=== PATIENT | female | born 1940 | race Caucasian/White ===

== ENCOUNTER 2017-02-11 20:16 | Emergency (ER) | payer MEDICARE, BC ==
[~2017-02-11 20:16] MED LIST: ISOVUE-370 76%-LOCM 1 ML ONE
[2017-02-11 20:59] LABS: #Lymphocytes 1.1 thou/uL (1.20-3.40); #Monocytes 0.8 thou/uL (0.11-0.59); #Neutrophils 13.9 thou/uL (1.40-6.50); %Basophils 0.2 % (0.0-1.0); %Eosinophils 0.1 % (0.0-10.0); %Lymphocytes 6.6 % (21.0-51.0); Hematocrit 48.9 % (36.0-47.0); Mean Platelet Volume 6.2 fL (7.4-10.4); Red Blood Cell (RBC) Count 5.02 mill/uL (4.20-5.40); White Blood Cell (WBC) Count 15.8 thou/uL (4.8-10.8)
[2017-02-11 21:17] LABS: Lactic Acid - Sepsis 1.6 mmol/L (0.5-2.2)
[2017-02-11 21:21] LABS: ALT (SGPT) 20 U/L (8-55); AST (SGOT) 20 U/L (5-34); Alkaline Phosphatase 116 U/L (40-150); Anion Gap 15 mmol/L (10-20); BUN (Urea Nitrogen) 18 mg/dL (9.8-20.1); Bilirubin, Total 1.1 mg/dL (0.2-1.2); CK (CPK) 55 U/L (29-168); Calc. Creatinine Clearance 0 mL/min (70-130); Calcium 10.1 mg/dL (7.8-10.44); Carbon Dioxide 24 mmol/L (23-31); Chloride 100 mmol/L (98-107); Estimated GFR-MDRD 63; Globulin 3.6 g/dL (2.4-3.5); Lipase 10 U/L (8-78); Protein, Total 7.8 g/dL (6.0-8.3)
[2017-02-11 21:25] LABS: Troponin I Less than 0.010 ng/mL (< 0.028)
--- NOTE | 2017-02-11 23:19 | CT ---
CONTRAST ENHANCED CTA CHEST: 02/11/17 HISTORY: Dyspnea. Contrast enhanced CTA of the chest is performed. 2D and 3D reconstructed images performed on an [employer] 3D workstation. Calcification of the aortic arch is seen. Bilateral pulmonary parenchymal interstitial fibrotic galvan es seen. Emphysematous changes also present. these are likely old. No evidence of acute intrathoracic abnormality seen. No evidence of filling defect seen in the pulmonary arteries to suggest pulmonary emboli. Coronary artery calcifications are seen. Some left hilar lymph node calcifications also seen. There is thickening of the mucus in the distal esophagus. This may represent esophageal pathology carmen rufina a hiatal hernia. Cyst or cystic lesion is present in the left hepatic lobe. Calcifications maggie tible with granuloma seen in the liver and in the spleen. IMPRESSION: 1. No evidence of pulmonary emboli seen. 2. Emphysematous and fibrotic changes seen in the lung parenchyma. POS: [facility]
[2017-02-11] MEDS ORDERED: predniSONE 20 MG TAB ONE (23:21)
== END 2017-02-12 00:22 | disposition home or self-care (01) ==
LOC: ERS 20:16
DX: J44.1 Chronic obstructive pulmonary disease with (acute) exacerbation (principal); F41.9 Anxiety disorder, unspecified; Z87.891 Personal history of nicotine dependence; Z79.899 Other long term (current) drug therapy
CPT/HCPCS: 36415; 71275; 80053; 82550; 82553; 83605; 83690; 84484; 85025; 87040; 93005; 94640; 94760; J7506; J7620

== ENCOUNTER 2018-02-24 00:29 | Emergency (ER) | payer MEDICARE, BC ==
[2018-02-24] MEDS ORDERED: Ondansetron PF 4 MG/2 ML Vial ONE (01:02)
[2018-02-24 01:15] LABS: #Eosinphils 0.1 thou/uL (0.0-0.7); #Lymphocytes 0.8 thou/uL (1.20-3.40); #Monocytes 0.9 thou/uL (0.11-0.59); #Neutrophils 8.3 thou/uL (1.40-6.50); %Basophils 0.1 % (0.0-1.0); %Eosinophils 1.3 % (0.0-10.0); %Lymphocytes 7.8 % (21.0-51.0); %Monocytes 8.7 % (0.0-10.0); %Neutrophils 82.1 % (42.0-75.0); Hemoglobin 14.8 g/dL (12.0-16.0); Mean Corpuscular HGB CONC 33.4 g/dL (32.0-36.0); Mean Corpuscular Hemoglobin 31.5 pg (27.0-31.0); Mean Corpuscular Volume 94.6 fL (78.0-98.0); Mean Platelet Volume 7.4 fL (7.4-10.4); Platelet Count 190 thou/uL (130-400); RBC Distribution Width 13.6 % (11.5-14.5); White Blood Cell (WBC) Count 10.1 thou/uL (4.8-10.8)
[2018-02-24 01:35] LABS: ALT (SGPT) 17 U/L (8-55); AST (SGOT) 16 U/L (5-34); Alkaline Phosphatase 124 U/L (40-150); Anion Gap 16 mmol/L (10-20); BUN (Urea Nitrogen) 27 mg/dL (9.8-20.1); Bilirubin, Total 0.6 mg/dL (0.2-1.2); Calc. Creatinine Clearance 0 mL/min (70-130); Calcium 10.2 mg/dL (7.8-10.44); Carbon Dioxide 24 mmol/L (23-31); Chloride 104 mmol/L (98-107); Estimated GFR-MDRD 60; Globulin 3.3 g/dL (2.4-3.5); Glucose 120 mg/dL (83-110); Lipase 33 U/L (8-78); Protein, Total 7.3 g/dL (6.0-8.3); Sodium 140 mmol/L (136-145)
[2018-02-24] MEDS ORDERED: Pantoprazole 40 MG VIAL ONE (03:58)
[2018-02-24 04:04] LABS: Bilirubin Negative (Negative); Blood, Urine Negative (Negative); Clarity CLEAR (Clear); Glucose, Urine (Dipstick) Negative (Negative); Leukocyte Negative (Negative); Nitrite Negative (Negative); Protein, Urine (Dipstick) Negative (Neg-Trace)
[2018-02-24 04:24] LABS: Specific Gravity, Urine Greater than 1.060 (1.002-1.036)
--- NOTE | 2018-02-24 08:17 | RAD ---
PORTABLE CHEST 1 VIEW: Date; 02/24/18 Time: 0059 hours HISTORY: Upper abdominal pain, swelling, diarrhea. FINDINGS: Comparison made with exam of 07/16/10. The heart size is normal. The aorta is tortuous. The lungs are expanded without focal areas of consol idation, pneumothorax, or pleural effusions. IMPRESSION: No acute process. POS: [facility]
--- NOTE | 2018-02-24 08:34 | CT ---
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 TECHNIQUE: Axial computed tomography images of the abdomen and pelvis with intravenous contrast. Coronal reforma tted images were created and reviewed. COMPARISON: No relevant prior studies available. FINDINGS: Lower thorax: No acute infiltrate in either lung base. Inferior left hemithorax calcified pleural irma que. Small hiatal hernia. ABDOMEN: Liver: Scattered calcified granulomas within the liver. 15 mm cyst in the left lobe of the liver. Gallbladder and bile ducts: Normal. No calcified stones. No ductal dilation. Pancreas: Normal. No ductal dilation. Spleen: Scattered calcified granulomas within the spleen. Adrenals: Normal. No mass. Kidneys and ureters: Normal. No hydronephrosis. Stomach and bowel: Normal. No obstruction. No mucosal thickening. Appendix: No evidence of appendicitis. PELVIS: Bladder: Unremarkable as visualized. Reproductive: Atrophic uterus and ovaries. ABDOMEN and PELVIS: Intraperitoneal space: Normal. No free air. No significant fluid collection. Bones/joints: No acute fracture. No dislocation. Soft tissues: Upper abdominal fat-containing ventral hernia Vasculature: Normal. No abdominal aortic aneurysm. Lymph nodes: Normal. No enlarged lymph nodes. IMPRESSION: 1. No acute intra-abdominal or pelvic process. 2. Small hiatal hernia. Thank you for allowing us to participate in the care of your patient. Dictated and Authenticated by: William Engel MD 02/24/2018 3:29 AM Central Time ([place] & [place]) FINAL REPORT CT ABDOMEN AND PELVIS WITH IV CONTRAST: Date: 02/24/18 FINDINGS/IMPRESSION: I agree with the preliminary report given by Mickie. POS: [facility]
--- NOTE | 2018-02-27 15:35 | EKG ---
Test Reason : Blood Pressure : / mmHG Vent. Rate : 083 BPM Atrial Rate : 083 BPM P-R Int : 122 ms QRS Dur : 072 ms QT Int : 376 ms P-R-T Axes : 080 059 060 degrees QTc Int : 441 ms Normal sinus rhythm Biatrial enlargement Nonspecific ST and T wave abnormality Abnormal ECG Confirmed by LEISA BECKER ([id number]), news videotape editor [employer] ([id number]) on 02/27/2018 3:34:54 PM Referred By: Confirmed By:LEISA BECKER
== END 2018-02-24 05:33 | disposition home or self-care (01) ==
LOC: ERS 00:29
DX: E86.0 Dehydration (principal); R10.9 Unspecified abdominal pain; J44.9 Chronic obstructive pulmonary disease, unspecified; F32.9 Major depressive disorder, single episode, unspecified; Z87.891 Personal history of nicotine dependence; Z79.899 Other long term (current) drug therapy; Z79.51 Long term (current) use of inhaled steroids
CPT/HCPCS: 36415; 71045; 74177; 80053; 81003; 83605; 83690; 84484; 85025; 93005; 94760; 96361; 96374; 96375; C9113; J2405

== ENCOUNTER 2018-02-26 12:27 | Day surgery (SDC) | payer MEDICARE, BC ==
[2018-02-25 15:49] VITALS: BMI 20.5
[2018-02-26] MEDS ORDERED: Albuterol Sulfate 2.5 mg/3 ml Neb NEB SCH (13:45)
[2018-02-26] MEDS ORDERED: Albuterol Sulfate 2.5 mg/3 ml Neb ONE (13:47)
--- NOTE | 2018-02-26 21:21 | OP ---
DATE OF PROCEDURE: 02/26/2018 PROCEDURES PERFORMED: 1. Esophagogastroduodenoscopy with biopsy. 2. Colonoscopy with polypectomy. INDICATIONS FOR PROCEDURE: Midepigastric abdominal pain. DESCRIPTION OF PROCEDURE: After the risks and benefits of the procedures were explained to the patient including risks of bleeding, infection, perforation, reactions to anesthesia, aspiration and/or pain, informed consent was obtained. The patient was then taken to the endoscopy suite, where deep sedation was administered via propofol and anesthesia support. Once adequate sedation was achieved, the standard gastroscope was introduced into the mouth with intubation of the esophagus, stomach, and proximal small intestine with the findings listed below. The patient tolerated this portion of the procedure well with no immediate perioperative complications. Upon completion of this portion of the procedures, all equipment was removed and the bed was rotated approximately 180 degrees. Once the patient was in position, a digital rectal examination was performed followed by introduction of the standard colonoscope into the rectum and advanced to the cecum with some difficulty due to tortuosity of the colon that required manual abdominal pressure to facilitate passage of the scope. The quality of the prep was fair with incomplete evaluation of the colonic mucosa due to a moderate amount of retained semi-solid and liquid stool. The patient tolerated the procedure well with no immediate perioperative complications. After the conclusion of the colonoscopy, all equipment was removed and the patient was taken to Day Stay in satisfactory condition. EGD FINDINGS: Esophagus: Normal-appearing mucosa was seen in the proximal and mid esophagus; however, salmon-colored mucosa extending up from the GE junction was seen in a circumferential manner at a length of approximately 1 cm. 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 There was no evidence of erosions, ulcerations, mass, lesions, or active/recent bleeding. The diaphragmatic pinch was well seen at 38 cm while the GE junction was well seen at 36 cm denoting a 2 cm hiatal hernia. Stomach: Normal-appearing mucosa was seen in the gastric cardia, fundus, body, greater curvature, antrum, and incisura. There was no evidence of erosions, ulcerations, mass, lesions, or active/recent bleeding. Duodenum: A mottled appearance was seen in the duodenal bulb, characterized as multiple erosions with effacement of the superficial mucosa within the duodenal bulb. Multiple biopsies were taken from this region for evaluation. Otherwise, there was no associated ulcerations, mass, or lesions. Normal-appearing mucosa was seen in the second portion of the duodenum as well. IMPRESSION: 1. 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 2. 2 cm hiatal hernia. 3. Erosive changes seen in the duodenal bulb concerning for H pylori versus NSAID duodenitis. 4. No etiology for the patient's abdominal pain was seen during this examination. COLONOSCOPY FINDINGS: Digital rectal exam: Small external hemorrhoids and perianal skin tags were seen on external examination. Colon findings: A moderate amount of semi-solid and liquid stool was seen throughout the entire colon, limiting visualization of the colonic mucosa despite aggressive irrigation and suctioning with sterile water. Of the mucosa seen, normal-appearing mucosa was seen at the ileocecal valve as well as the appendiceal orifice. Normal-appearing mucosa was seen in the cecum, ascending, and transverse colons. Three polyps measuring 3 mm in size were seen in the descending colon and completely removed with biopsy forceps. They were retrieved and placed in a specimen jar for evaluation. Normal-appearing mucosa was then seen in the sigmoid colon. An additional 3 to 4 mm polyp was seen in the rectum and completely removed with biopsy forceps. It was retrieved and placed in a specimen jar for evaluation. Otherwise, small internal hemorrhoids were seen on rectal retroflexion. IMPRESSION: 1. Incomplete visualization of the colonic mucosa secondary to retained semi-solid/liquid stool that is adequate for the purposes of evaluation of abdominal pain, but inadequate for the purpose of screening for lesions less than 5 mm in size. 2. Three 3-mm polyps seen in the descending colon, status post biopsy forceps. 3. A 3 to 4 mm polyp seen in the rectum and completely removed with biopsy forceps. 4. Small internal and external hemorrhoids. 5. Perianal skin tags. 6. No etiology for the patient's abdominal pain was seen during this examination. RECOMMENDATIONS: 1. We would follow up on the biopsy results with repeat upper endoscopy and colonoscopy based on pathology results. 2. We would recommend followup with PCP for probable ventral hernia pain. 3. Followup in the GI clinic as needed. 4. Recommend pain control with acetaminophen for now until seen by primary care physician. 5. We would have the patient follow up in the GI clinic in 3 weeks for evaluation of any additional GI abnormalities. Job ID: [id number]
== END 2018-02-26 16:42 | disposition home or self-care (01) ==
LOC: SDC 12:27
PROVIDERS: ATTEND Internal Medicine
PROC: 0DB98ZX Excision of Duodenum, Via Natural or Artificial Opening Endoscopic, Diagnostic (ICD-10-PCS; principal; 2018-02-26)
PROC: 0DB58ZX Excision of Esophagus, Via Natural or Artificial Opening Endoscopic, Diagnostic (ICD-10-PCS; 2018-02-26)
PROC: 0DBM8ZX Excision of Descending Colon, Via Natural or Artificial Opening Endoscopic, Diagnostic (ICD-10-PCS; 2018-02-26)
PROC: 0DBP8ZX Excision of Rectum, Via Natural or Artificial Opening Endoscopic, Diagnostic (ICD-10-PCS; 2018-02-26)
DX: D12.4 Benign neoplasm of descending colon (principal); D12.8 Benign neoplasm of rectum; K63.89 Other specified diseases of intestine; K20.9 Esophagitis, unspecified; K26.9 Duodenal ulcer, unspecified as acute or chronic, without hemorrhage or perforation; K44.9 Diaphragmatic hernia without obstruction or gangrene; K64.4 Residual hemorrhoidal skin tags; K64.8 Other hemorrhoids; Z79.899 Other long term (current) drug therapy; Z88.0 Allergy status to penicillin
CPT/HCPCS: J7611

== ENCOUNTER 2018-02-28 10:30 | Inpatient (IN) | payer MEDICARE, BC ==
[2018-02-28] MEDS ORDERED: Dexamethasone 4 mg/ml Vial ONE (10:47)
[2018-02-28] MEDS ORDERED: Magnesium 2 GM/50 ML BAG (IN WATER) ONE (10:47)
[2018-02-28 10:59] LABS: #Lymphocytes 0.7 thou/uL (1.20-3.40); #Monocytes 0.4 thou/uL (0.11-0.59); #Neutrophils 6.8 thou/uL (1.40-6.50); %Basophils 0.1 % (0.0-1.0); %Eosinophils 0.6 % (0.0-10.0); %Monocytes 5.4 % (0.0-10.0); Hemoglobin 13.2 g/dL (12.0-16.0); Mean Corpuscular HGB CONC 32.8 g/dL (32.0-36.0); Mean Corpuscular Hemoglobin 31.5 pg (27.0-31.0); Mean Platelet Volume 6.7 fL (7.4-10.4); Platelet Count 175 thou/uL (130-400); RBC Distribution Width 13.2 % (11.5-14.5); Red Blood Cell (RBC) Count 4.18 mill/uL (4.20-5.40); White Blood Cell (WBC) Count 7.9 thou/uL (4.8-10.8)
[2018-02-28 11:09] LABS: Actual Bicarbonate (HCO3a) 20.7 mEq/L (22-28); Analyzer IN Cardio ER; CO2 Tension 29.7 mmHg (35.0-45.0); Carboxyhemoglobin (COHb) 0.6 gm% (0.0-3.0); Hemoglobin (Hb) 13.3 g/dL (12.0-16.0); Potassium - ABG Lab 3.15 mmol/L (3.70-5.30); pH, Arterial 7.46 (7.35-7.45)
[2018-02-28] MEDS ORDERED: Lorazepam 2 MG/ML VIAL ONE (11:11)
[2018-02-28 11:17] LABS: Puncture Site LR
[2018-02-28 11:18] LABS: ALV-art Gradient 159.375 (0-20)
[2018-02-28 11:23] LABS: ALT (SGPT) 15 U/L (8-55); AST (SGOT) 16 U/L (5-34); Albumin 3.4 g/dL (3.4-4.8); Alkaline Phosphatase 78 U/L (40-150); Anion Gap 17 mmol/L (10-20); BUN (Urea Nitrogen) 11 mg/dL (9.8-20.1); Bilirubin, Total 0.6 mg/dL (0.2-1.2); CK (CPK) 58 U/L (29-168); Calc. Creatinine Clearance 0 mL/min (70-130); Calcium 9.4 mg/dL (7.8-10.44); Carbon Dioxide 22 mmol/L (23-31); Chloride 104 mmol/L (98-107); Estimated GFR-MDRD 81; Globulin 3.3 g/dL (2.4-3.5); Glucose 121 mg/dL (83-110); Lipase 18 U/L (8-78); Potassium 3.7 mmol/L (3.5-5.1); Protein, Total 6.7 g/dL (6.0-8.3); Sodium 139 mmol/L (136-145)
[2018-02-28 11:46] LABS: CKMB 2.2 ng/mL (0-6.6)
--- NOTE | 2018-02-28 12:24 | RAD ---
PORTABLE AP CHEST XRAY: DATE: 02/28/2018. HISTORY: Dyspnea and shortness of breath for several days. COMPARISON: 02/24/2018. FINDINGS: Lungs are hyperexpanded with emphysematous changes again seen in the upper lung zones. There are chr onic lung changes again seen bilaterally. However, there are slightly greater increased patchy inter stitial opacities within the left mid lung zone and at the left lung base which may be related to dev eloping pneumonia. Vascular calcifications are seen in the thoracic aorta. Cardiac silhouette and p ulmonary vasculature are within normal limits. There is osteopenia. IMPRESSION: 1. Pneumonitis/developing pneumonia in the left mid lung zone and at the left lung base. Followup t o resolution is recommended. 2. Chronic lung changes and evidence of chronic obstructive pulmonary disease. POS: [facility]
[2018-02-28] MEDS ORDERED: Benzonatate 100 MG CAP PO PRN (13:26)
[2018-02-28] MEDS ORDERED: Acetaminophen 325 MG TAB PO PRN (13:26)
[2018-02-28] MEDS ORDERED: Bisacodyl 5 MG TAB PO PRN ×2 (13:26)
[2018-02-28] MEDS ORDERED: Senokot S 8.6-50 MG TAB PO PRN ×2 (13:26)
[2018-02-28] MEDS ORDERED: Nitroglycerin 0.4 MG TAB (25 Tab Bottle) SL PRN (13:26)
[2018-02-28] MEDS ORDERED: hydrALAZINE 20 MG/ML VIAL SLOW IVP PRN (13:26)
[2018-02-28] MEDS ORDERED: Ondansetron PF 4 MG/2 ML Vial IVP PRN (13:26)
[2018-02-28] MEDS ORDERED: cloNIDine 0.1 MG TAB PO PRN (13:26)
[2018-02-28 14:06] LABS: Bilirubin Small (Negative); Blood, Urine Negative (Negative); Clarity CLEAR (Clear); Glucose, Urine (Dipstick) Negative (Negative); Leukocyte Negative (Negative); Nitrite Negative (Negative); Protein, Urine (Dipstick) Trace mg/dL (Neg-Trace); Specific Gravity, Urine 1.043 (1.002-1.036)
[2018-02-28 14:56] LABS: Lactic Acid 2.5 mmol/L (0.5-2.2)
[2018-02-28] MEDS ORDERED: Mometasone/Formoterol 120 PUFF INHALER INH SCH ×2 (15:00→18:30)
[2018-02-28] MEDS ORDERED: Sodium Chloride 0.9% 1,000 ML IV SCH (15:00)
[2018-02-28 15:27] VITALS: BMI 20.5
[2018-02-28] MEDS: Sodium Chloride 0.9% 1,000 ML IV SCH ×2 (15:45→23:59)
--- NOTE | 2018-02-28 15:46 | HP ---
PRIMARY CARE PHYSICIAN: Juan Alberto Almazan MD. CHIEF COMPLAINT: Shortness of breath and abdominal pain. HISTORY OF PRESENTING ILLNESS: Ms. Guzman is a pleasant 78-year-old female with past medical history of COPD who presented to the emergency room with above-mentioned complaint. History is mainly obtained by the patient herself and supplemented by multiple family members present in the room. Electronic medical records have been reviewed and the case has been discussed with admitting ER physician, Dr. Serra. Ms. Guzman reports that she has had sudden onset of sharp, severe abdominal pain on 02/24/2018 and presented to the ER. She underwent a CT scan of the abdomen and pelvis and was found to have a hiatal hernia and was referred to GI for further evaluation. She underwent EGD and colonoscopy by Dr. Kirk on 02/26/2018 with biopsies taken. She was found to have a ventral hernia and a hiatal hernia and was started on dexlansoprazole. Her abdominal pain is not really relieved and it is better when she rests, but whenever she starts walking it hurts more. Because of this reason, she has been walking less and less and somehow according to the family, she has developed pneumonia because of that. They presented to the ER today when she woke up with severe difficulty breathing this morning. She has been having some postnasal drip for the last 2 or 3 days and low-grade fever since her colonoscopy. Her last bowel movement was after colonoscopy, but she is passing gas. Her abdominal pain is tolerable when she rests, but if she walks around, she has severe epigastric and lower abdominal pain. She has had some nausea but no vomiting and has poor appetite. In the emergency room, she underwent chest x-ray, which showed findings consistent with left lower lobe pneumonia. She was hypoxic with 75% oxygen saturation per EMS. She was initially treated with BiPAP in the ER and was weaned off it with improved oxygenation. She received nebulizers as well as antibiotics in the emergency room. There was also evidence of demand ischemia with troponin of 0.215 and BNP of 219. Her lactic acid is elevated to 3.1. She is now being admitted to the hospital with acute hypoxic respiratory failure due to COPD exacerbation and pneumonia. PAST MEDICAL HISTORY: COPD. PAST SURGICAL HISTORY: 1. Bladder surgery. 2. Sinus surgery. 3. Appendectomy. 4. Cholecystectomy. PSYCHIATRIC HISTORY: Depression. SOCIAL HISTORY: She lives at home with her family and is normally ambulatory and independent with her ADLs. She quit smoking about 12 years ago. No alcohol or drug abuse. FAMILY HISTORY: Significant for colon cancer in her father and her brother. Her mother had kidney cancer. One of her sisters had lung cancer and brain cancer. No heart disease runs in her family. ALLERGIES: PENICILLIN. HOME MEDICATIONS: 1. Sertraline 50 mg daily. 2. Aldactone 25 mg daily. 3. Advair Diskus b.i.d., which she has not been able to do for the last two days because of weakness. 4. Albuterol inhaler. 5. Magnesium. 6. Prilosec. 7. Zofran. REVIEW OF SYSTEMS: A 12-point review of system is done, it is negative except for those mentioned in the history and physical. CODE STATUS: Full code discussed with the patient in detail along with her family members in the room. LABORATORY DATA: Her CBC today shows WBC 7.9 with 85% neutrophils, hemoglobin 13.2, platelet count 175. Her ABG shows pH of 7.46, pCO2 29, PO2 160 on 50% oxygen with BiPAP. Serum chemistry showed bicarb 22, blood sugar 121. Lactic acid 3.1. CK-MB normal. Creatine kinase normal. Troponin 0.215 with repeat troponin 0.287. BNP of 219. Lipase normal. Urinalysis showed trace ketones. Chest x-ray by my review shows left-sided basilar opacity. A 12-lead EKG by my review shows nonspecific ST and T-wave changes and sinus tachycardia with heart rate of 107. PHYSICAL EXAMINATION: VITAL SIGNS: Upon presentation to the ER, 97% on a non-rebreather. Blood pressure 138/62, pulse of 107, respirations 32, temperature 98.7. GENERAL: She appears ill and sick looking, but in no acute distress. She is coughing, which sounds very rattly. Multiple family members are at bedside. HEENT: Mucous membranes slightly dry. No oropharyngeal exudate or erythema. Head is normocephalic, atraumatic. Pupils equal, reactive to light and accommodation. Extraocular movements intact. NECK: Supple without any lymphadenopathy, JVD, or bruit. CHEST: Shows very few wheezing bilaterally, but the breath sounds are diminished equally on both sides. Rate rhythm is regular without any murmurs, rubs, or gallops. ABDOMEN: Tender to palpation in the epigastric region and entire lower abdomen. There is no rebound, guarding, or rigidity. It is soft and nondistended. EXTREMITIES: Free of any cyanosis, clubbing, or edema. NEUROLOGICAL: Nonfocal. SKIN: Free of any rashes or bruises. Feels warm and dry to touch. PSYCHIATRIC: Normal affect. IMPRESSION AND PLAN: 1. Acute hypoxic respiratory failure. This is likely multifactorial. She has evidence of chronic obstructive pulmonary disease exacerbation and her physical examination was consistent with severe respiratory distress upon presentation, requiring BiPAP. She also has evidence of left lower lobe pneumonia. At this time, she will be admitted to telemetry unit and we will treat her for both. We will continue her on IV levofloxacin, which she has received in the ER and start her on IV steroids and nebulizers scheduled as well as p.r.n. and add Dulera b.i.d. With her elevated cardiac enzyme, a cardiac event can also not be ruled out. However, most likely the elevated enzymes are consistent with demand ischemia. We will obtain a transthoracic echocardiogram and continue to trend serial cardiac enzymes. No evidence to suggest pulmonary edema at this time. 2. Sepsis. She does have elevated lactic acid, tachycardia upon presentation as well as neutrophilia with evidence of infection. She will be started on IV antibiotics and gentle IV fluids. Blood cultures and urine cultures have been obtained in the ER and we will follow the results. She will be monitored on telemetry unit. Repeat lactic acid in 2 hours per sepsis protocol. 3. Abdominal pain. The patient's examination is consistent with severe hiatal hernia and possibly gastroesophageal reflux disease. We will treat her with proton pump inhibitor twice a day. We will request consultation with surgery in the inpatient setting because of unrelenting abdominal pain and inability to pass any stool for the last 24 hours. We will have a low threshold if her signs and symptoms are consistent with obstruction. Currently, she is passing gas. We will put her on diet as tolerated for now. Her EGD and colonoscopy was reviewed and EGD showed erosive changes in the duodenal bulb. 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 The colonoscopy has showed some polyps and hemorrhoids. 4. Elevated cardiac enzymes. This is most likely secondary to demand ischemia from severe hypoxia. Echocardiogram will be ordered and we will continue to trend serial cardiac enzymes. 5. Severe deconditioning. We will have OT, PT evaluate the patient and follow along. 6. History of depression. Restart Zoloft once home dosage is confirmed. 7. Code status: Full code discussed with the patient. 8. Add p.r.n. medication order and deep vein thrombosis and gastrointestinal prophylaxis. DISPOSITION: Ms. Guzman is currently being admitted to the hospital for acute hypoxic respiratory failure: Acute COPD exacerbation and left lower lobe pneumonia with sepsis. Estimated length of stay at this time is at least 2 to 3 midnights. Total time spent in admission of this critically ill patient, 40 minutes. Job ID: [id number]
[2018-02-28 16:34] LABS: Legionella Urinary Ag Negative (Negative); Strep pneumo Urine Ag NEGATIVE (NEGATIVE)
[2018-02-28 17:37] LABS: CKMB 2.4 ng/mL (0-6.6)
[2018-02-28] MEDS: guaiFENesin ER 600 MG TAB PO SCH (20:14)
[2018-02-28] MEDS ORDERED: Non-Formulary Item 1 EACH (Fluticasone/Salmeterol [Advair Diskus 250/50] 1 INH) IH SCH (21:00)
[2018-02-28] MEDS ORDERED: Famotidine 20 MG TAB PO SCH (21:00)
[2018-02-28] MEDS: Amitriptyline HCl 25 MG TAB PO SCH (21:30)
[2018-02-28] MEDS: Spironolactone 25 MG TAB PO SCH (21:31)
--- NOTE | 2018-03-01 03:39 | CON ---
DATE OF CONSULTATION: REASON FOR CONSULTATION: Abdominal pain and hernia. HISTORY OF PRESENT ILLNESS: Ms. Guzman is a 78-year-old woman who has been complaining of abdominal pain and nausea since . She was seen in the emergency room and no significant problems found, so she was sent home but continued to have problems, so her family brought her back. She has basically been on a liquid diet since the onset of her symptoms with periods of not eating due to testing. She has difficulty saying where her pain is, but does seem to have it more in the upper abdomen and the lower abdomen. She underwent EGD and colonoscopy without any significant abnormalities found. She was started on PPI. She states that the abdominal pain is worse when she walks, but eating does not necessarily affect it. However, she has difficulty saying with confidence that eating does not cause the pain to get worse and she has not really been eating much since it started. She also has been having worsening problems with breathing and has been diagnosed with a left lower lobe pneumonia. She was hypoxic on arrival at 75% and was briefly on BiPAP before being weaned to nasal cannula. She is on home O2 at 2 to 2.5 L/min. Her family states that she does not always wear this during the day, but always wears it at night. CT of the abdomen obtained at some point during this process showed a small hiatal hernia. She was also noted to have a ventral hernia, although this was not in the report, containing preperitoneal fat in the epigastric area. PAST MEDICAL HISTORY: She has a past medical history of COPD, oxygen dependent. She has not seen her dental prosthetist in several years. PAST SURGICAL HISTORY: Appendectomy, cholecystectomy, bladder surgery, and sinus surgery. SOCIAL HISTORY: Positive for tobacco use, which she quit over 10 years ago. No history of alcohol or drug use. FAMILY HISTORY: Colon and kidney cancer, lung and brain cancer. ALLERGIES: SHE REPORTS AN ALLERGY TO PENICILLIN. MEDICATIONS AT HOME: Takes; 1. Sertraline. 2. Aldactone. 3. Advair. 4. Albuterol. 5. Magnesium. 6. Prilosec. 7. Zofran. REVIEW OF SYSTEMS: A 12-system review is negative except per HPI. PHYSICAL EXAMINATION: VITAL SIGNS: The patient is afebrile with low to low normal blood pressure, heart rate in the 70s to 80s, and 97% to 98 % saturated on 2 L to 3 L nasal cannula. GENERAL: Reveals a frail, elderly woman, in no acute distress. She is not jaundiced or icteric. She is not flushed or toxic in appearance. HEENT: Unremarkable. NECK: Supple without lymphadenopathy. HEART: Regular in its rate and rhythm without murmurs, rubs, or gallops. LUNGS: Clear to auscultation anteriorly. ABDOMEN: Diffusely tender to palpation. She does have an easily reducible hernia defect in the epigastric area which is about 2 fingers breadth in size. She is tender to palpation in this area, but is also tender to palpation over her lower ribcage and lateral chest. EXTREMITIES: Warm and well perfused with some mild ankle edema. NEUROLOGIC: No focal deficits. PSYCHIATRIC: Alert, oriented, and anxious. LABORATORY DATA: White count is normal. Troponins have been mildly elevated, and lactate has also been mildly elevated, also trending down. BNP is slightly up at 219. CT images are reviewed. I agree with the written report. The written report does not mention the epigastric hernia, but there is clearly a fascial defect with preperitoneal fat only protruding through it. This is small and contains only fat. ASSESSMENT: Ventral hernia, possibly related to a previous laparoscopic surgery. This is a small reducible defect which does not really explain all of her symptoms. This can be repaired electively as an outpatient if the patient is cleared for surgery by Pulmonary Medicine. However, I am concerned about her ability to tolerate anesthesia and extubate postoperatively. I can order a binder for the patient for when she gets out of bed, but she should not wear this in bed due to her somewhat tenuous pulmonary status. If her pain is relieved by the binder, we will provide some evidence that some of her pain is due to the hernia. However, I cannot attribute her lower abdominal pain or her nausea to this small reducible fat only containing hernia. It is possible that she just has a viral gastroenteritis or some other self-limiting problem since the GI complaints have only been present for a few days. She can follow up with me in my clinic next week, but again, she will require clearance from Pulmonary prior to surgery. She will also likely need cardiac clearance given her elevated troponin during this admission. Job ID: [id number]
[2018-03-01] MEDS: Sodium Chloride 0.9% 1,000 ML IV SCH ×2 (05:30→21:28)
[2018-03-01 05:58] LABS: #Lymphocytes 0.3 thou/uL (1.20-3.40); #Monocytes 0.3 thou/uL (0.11-0.59); #Neutrophils 6.8 thou/uL (1.40-6.50); %Lymphocytes 4.2 % (21.0-51.0); %Monocytes 3.5 % (0.0-10.0); %Neutrophils 92.3 % (42.0-75.0); Mean Corpuscular HGB CONC 32.9 g/dL (32.0-36.0); Mean Corpuscular Hemoglobin 31.7 pg (27.0-31.0); Mean Corpuscular Volume 96.1 fL (78.0-98.0); Platelet Count 163 thou/uL (130-400); RBC Distribution Width 12.9 % (11.5-14.5); Red Blood Cell (RBC) Count 3.48 mill/uL (4.20-5.40); White Blood Cell (WBC) Count 7.3 thou/uL (4.8-10.8)
[2018-03-01 06:17] LABS: Anion Gap 11 mmol/L (10-20); BUN (Urea Nitrogen) 8 mg/dL (9.8-20.1); Calc. Creatinine Clearance 65 mL/min (70-130); Carbon Dioxide 25 mmol/L (23-31); Chloride 110 mmol/L (98-107); Estimated GFR-MDRD Greater than 90; Glucose 123 mg/dL (83-110); Potassium 4.2 mmol/L (3.5-5.1); Sodium 142 mmol/L (136-145)
[2018-03-01] MEDS: Mometasone/Formoterol 120 PUFF INHALER INH SCH ×2 (07:07→19:19)
[2018-03-01 08:51] LABS: Troponin I 0.067 ng/mL (< 0.028)
[2018-03-01] MEDS: Enoxaparin Sodium 40 MG/0.4 ML SYRINGE SC SCH (09:17)
[2018-03-01] MEDS: Magnesium Oxide 400 MG TAB PO SCH (09:18)
[2018-03-01] MEDS: Saccharomyces boulardii 250 MG CAP PO SCH (09:19)
[2018-03-01] MEDS: guaiFENesin ER 600 MG TAB PO SCH ×2 (09:19→21:29)
--- NOTE | 2018-03-01 12:45 | PDOC.PN ---
- Subjective Encounter Start Date: 03/01/18 Encounter Start Time: 09:15 Subjective: no chest pain or sob or palp -: abd dyscomfort is better -: had bm this am, no nausea, is tolerating oral diet - Objective Resuscitation Status - Order Detail: 02/28/18 14:49 Resuscitation Status Routine Resuscitation Status: FULL: Full Resuscitation Discussed with: discussed w pt MAR Reviewed: Yes Vital Signs & Weight: Vital Signs (12 hours) Temp Pulse Resp BP Pulse Ox 03/01/18 11:46 98.4 F 65 16 111/53 L 95 03/01/18 07:27 98.2 F 77 19 106/52 L 93 L 03/01/18 07:09 71 16 97 03/01/18 07:07 71 16 97 03/01/18 03:18 97.8 F 66 20 103/54 L 92 L Weight Weight 122 lb 1.6 oz I&O: 02/28/18 03/01/18 03/02/18 06:59 06:59 06:59 Intake Total 1549 Output Total 1100 Balance 449 Result Diagrams: 03/01/18 05:01 03/01/18 05:01 Phys Exam - Physical Examination HEENT: PERRLA, moist MMs Neck: no JVD, supple Respiratory: no wheezing, no rales Cardiovascular: RRR, no significant murmur Gastrointestinal: soft, non-tender, positive bowel sounds Musculoskeletal: no edema, pulses present Neurological: non-focal, moves all 4 limbs Psychiatric: normal affect, A&O x 3 Dx/Plan (1) Acute respiratory failure with hypoxia Code(s): J96.01 - ACUTE RESPIRATORY FAILURE WITH HYPOXIA Status: Resolved Comment: on home dose of 2 lts now (2) COPD exacerbation Code(s): J44.1 - CHRONIC OBSTRUCTIVE PULMONARY DISEASE W (ACUTE) EXACERBATION Status: Acute (3) Demand ischemia of myocardium Code(s): I24.8 - OTHER FORMS OF ACUTE ISCHEMIC HEART DISEASE Status: Acute (4) Abdominal pain Code(s): R10.9 - UNSPECIFIED ABDOMINAL PAIN Status: Chronic Qualifiers: Abdominal location: epigastric Qualified Code(s): R10.13 - Epigastric pain (5) PNA (pneumonia) Code(s): J18.9 - PNEUMONIA, UNSPECIFIED ORGANISM Status: Suspected Qualifiers: Pneumonia type: due to unspecified organism - Plan is on levaquin, solumedrol, nebs -: gentle iv hydration -: outpt pre-op w/u for ventral hernia repair -: echo pending, PT to mobilize as tolerated -: may dc home if cleared by specialists on oral antibiotics, steroids * . Review of Systems - Medications/Allergies Allergies/Adverse Reactions: Allergies Allergy/AdvReac Type Severity Reaction Status Date / Time Penicillins Allergy Verified 02/25/18 15:49 Medications: Current Medications Acetaminophen (Tylenol) 650 mg PO Q4H PRN PRN Reason: Headache/Fever/Mild Pain (1-3) Albuterol/Ipratropium (Duoneb) 3 ml NEB [id number] PRN PRN Reason: SOB &/or Wheezing Albuterol/Ipratropium (Duoneb) 3 ml NEB [id number] [facility] Last Admin: 03/01/18 07:09 Dose: 3 ml Amitriptyline HCl (Elavil) 50 mg PO HS [facility] Last Admin: 02/28/18 21:30 Dose: 50 mg Benzonatate (Tessalon) 100 mg PO Q6H PRN PRN Reason: Cough Bisacodyl (Dulcolax) 10 mg PO DAILYPRN PRN PRN Reason: Constipation Clonidine (Catapres) 0.1 mg PO Q4H PRN PRN Reason: SBP > 160____ Enoxaparin Sodium (Lovenox) 40 mg SC 0900 [facility] Last Admin: 03/01/18 09:17 Dose: 40 mg Guaifenesin (Mucinex) 600 mg PO Q12HR [facility] Last Admin: 03/01/18 09:19 Dose: 600 mg Hydralazine HCl (Apresoline) 10 mg SLOW IVP Q4H PRN PRN Reason: SBP > 180 and HR < 70 Levofloxacin 750 mg/ Device 150 mls @ 100 mls/hr IVPB 1200 [facility] Last Admin: 03/01/18 11:54 Dose: 150 mls Sodium Chloride (Normal Saline 0.9%) 1,000 mls @ 75 mls/hr IV .[id number] [facility] Last Admin: 03/01/18 05:30 Dose: 1,000 mls Magnesium Oxide (Magnesium Oxide) 200 mg PO DAILY [facility] Last Admin: 03/01/18 09:18 Dose: 200 mg Methylprednisolone Sodium Succinate (Solu-Medrol) 40 mg IVP Q6HR [facility] Last Admin: 03/01/18 11:54 Dose: 40 mg Mometasone Furoate/Formoterol Fumar (Dulera 200 Mcg/5 Mcg Inhaler) 2 puff INH BID-RT [facility] Last Admin: 03/01/18 07:07 Dose: 2 puff Nitroglycerin (Nitrostat) 0.4 mg SL Q5MIN PRN PRN Reason: Chest Pain Ondansetron HCl (Zofran) 4 mg IVP Q6H PRN PRN Reason: Nausea/Vomiting Pantoprazole Sodium (Protonix) 40 mg PO BID [facility] Last Admin: 03/01/18 09:19 Dose: 40 mg Saccharomyces Boulardii (Florastor) 250 mg PO DAILY [facility] Last Admin: 03/01/18 09:19 Dose: 250 mg Senna/Docusate Sodium (Senokot S) 2 tab PO BID PRN PRN Reason: Constipation Sodium Chloride (Flush - Normal Saline) 10 ml IVF Q12HR [facility] Last Admin: 03/01/18 09:20 Dose: 10 ml Sodium Chloride (Flush - Normal Saline) 10 ml IVF PRN PRN PRN Reason: Saline Flush Spironolactone (Aldactone) 25 mg PO HS [facility] Last Admin: 02/28/18 21:31 Dose: 25 mg
--- NOTE | 2018-03-01 17:35 | CON ---
DATE OF CONSULTATION: HISTORY OF PRESENT ILLNESS: Ms. Guzman is a pleasant 78-year-old woman, who is a patient of Dr. Jb Summers. She was last seen and evaluated on 01/19/2018. She recently presented with shortness of breath and abdominal discomfort. She was recently diagnosed with pneumonia. She states she has had subjective fevers while at home. She did have significant hypoxia present upon initial presentation, but her BNP was not significant. She was subsequently admitted and initial troponin was 0.2. She denies chest pain or pressure. PAST MEDICAL HISTORY: Hypertension, COPD, and hyperlipidemia. HOME MEDICATIONS: Include, 1. Advair. 2. ProAir. 3. Spironolactone. CARDIAC HISTORY: Last echo noted in office on 03/28/2016 with LVEF 60% to 65%. No recent stress study performed. ALLERGIES: PENICILLIN. REVIEW OF SYSTEMS: A 10-point review of systems is reviewed and as above, negative. PHYSICAL EXAMINATION: GENERAL: Patient is a pleasant female, who is in no acute distress. The patient appears their stated age. VITAL SIGNS: Blood pressure 118/85, pulse 78, and temperature 98. NEUROLOGIC: The patient is alert and oriented x3 with no focal neurologic deficits. HEENT: Sclerae without icterus. Mouth has moist mucous membranes with normal pallor. NECK: No JVD. Carotid upstroke brisk. No bruits bilaterally. LUNGS: Clear to auscultation with unlabored respirations. BACK: No scoliosis or kyphosis. CARDIAC: Regular rate and rhythm with normal S1 and S2. No S3 or S4 noted. No significant rubs, murmurs, thrills, or gallops noted throughout the precordium. PMI is not displaced. There is no parasternal heave. ABDOMEN: Soft, nontender, nondistended. No peritoneal signs present. No hepatosplenomegaly. No abnormal striae. EXTREMITIES: 2+ femoral and 2+ dorsalis pedis pulses. No cyanosis, clubbing, or edema. SKIN: No gross abnormalities. PERTINENT LABORATORY DATA: Hemoglobin 11. Creatinine 0.6. Peak troponin 0.3 is now downtrending. IMPRESSION: 1. Elevated troponin. 2. Pneumonia noted in the left mid lung region. 3. Chronic obstructive pulmonary disease. RECOMMENDATIONS: Elevated troponin, likely demand ischemia. At this point, recommend continue supportive care. She has been placed on antibiotic therapy and would continue. Beta-smooth therapy is contraindicated due to COPD and asthma. We will add aspirin in addition to statin therapy. She currently has no symptoms suggesting angina, so we will defer Imdur. Job ID: [id number]
[2018-03-01] MEDS: Amitriptyline HCl 25 MG TAB PO SCH (21:29)
[2018-03-01] MEDS: Atorvastatin Calcium 40 MG TAB PO SCH (21:29)
[2018-03-01] MEDS: Spironolactone 25 MG TAB PO SCH (21:30)
[2018-03-02] MEDS: Mometasone/Formoterol 120 PUFF INHALER INH SCH ×2 (07:33→18:42)
[2018-03-02] MEDS: Magnesium Oxide 400 MG TAB PO SCH (08:26)
[2018-03-02] MEDS: Enoxaparin Sodium 40 MG/0.4 ML SYRINGE SC SCH (08:26)
[2018-03-02] MEDS: predniSONE 20 MG TAB PO SCH (08:26)
[2018-03-02] MEDS: Saccharomyces boulardii 250 MG CAP PO SCH (08:26)
[2018-03-02] MEDS: guaiFENesin ER 600 MG TAB PO SCH ×2 (08:26→20:29)
--- NOTE | 2018-03-02 10:11 | PDOC.PN ---
- Subjective Encounter Start Date: 03/02/18 Encounter Start Time: 08:20 Subjective: still wheezing, has amb around 24ft with rw -: no chest pain, but has epigastric pain still -: no nausea, is eating better - Objective Resuscitation Status - Order Detail: 02/28/18 14:49 Resuscitation Status Routine Resuscitation Status: FULL: Full Resuscitation Discussed with: discussed w pt MAR Reviewed: Yes Vital Signs & Weight: Vital Signs (12 hours) Temp Pulse Resp BP Pulse Ox 03/02/18 08:26 99 03/02/18 07:34 93 18 95 03/02/18 07:33 93 18 95 03/02/18 07:22 97.9 F 60 16 118/56 L 99 03/02/18 04:00 97.5 F L 66 14 126/58 L 95 Weight Weight 124 lb 14.4 oz I&O: 03/01/18 03/02/18 03/03/18 06:59 06:59 06:59 Intake Total 1549 3140 Output Total 1100 400 Balance 449 2740 Result Diagrams: 03/01/18 05:01 03/01/18 05:01 Phys Exam - Physical Examination HEENT: PERRLA, moist MMs Neck: no JVD, supple Respiratory: no rales, wheezing present Cardiovascular: RRR, no significant murmur Gastrointestinal: soft, non-tender, positive bowel sounds Musculoskeletal: no edema, pulses present Neurological: non-focal, moves all 4 limbs Psychiatric: normal affect, A&O x 3 Dx/Plan (1) Acute respiratory failure with hypoxia Code(s): J96.01 - ACUTE RESPIRATORY FAILURE WITH HYPOXIA Status: Resolved Comment: on home dose of 2 lts by OR now (2) COPD exacerbation Code(s): J44.1 - CHRONIC OBSTRUCTIVE PULMONARY DISEASE W (ACUTE) EXACERBATION Status: Acute (3) Demand ischemia of myocardium Code(s): I24.8 - OTHER FORMS OF ACUTE ISCHEMIC HEART DISEASE Status: Acute (4) Abdominal pain Code(s): R10.9 - UNSPECIFIED ABDOMINAL PAIN Status: Chronic Qualifiers: Abdominal location: epigastric Qualified Code(s): R10.13 - Epigastric pain (5) PNA (pneumonia) Code(s): J18.9 - PNEUMONIA, UNSPECIFIED ORGANISM Status: Suspected Qualifiers: Pneumonia type: due to unspecified organism - Plan will check CT angio abd to r/o mesenteric ischemia if not done before -: on prednisone, nebs, levaquin -: d/w , will likely need outpt PFT's when stable for preop clearanc -: echo shows good ef, urine culture no growth -: to amb more, likely to rehab, continue home meds as below * . Review of Systems - Medications/Allergies Allergies/Adverse Reactions: Allergies Allergy/AdvReac Type Severity Reaction Status Date / Time Penicillins Allergy Verified 02/25/18 15:49 Medications: Current Medications Acetaminophen (Tylenol) 650 mg PO Q4H PRN PRN Reason: Headache/Fever/Mild Pain (1-3) Albuterol/Ipratropium (Duoneb) 3 ml NEB Q3HX-VF PRN PRN Reason: SOB &/or Wheezing Albuterol/Ipratropium (Duoneb) 3 ml NEB [id number] [facility] Last Admin: 03/02/18 07:34 Dose: 3 ml Amitriptyline HCl (Elavil) 50 mg PO HS [facility] Last Admin: 03/01/18 21:29 Dose: 50 mg Aspirin (Aspirin Chewable) 81 mg PO DAILY [facility] Last Admin: 03/02/18 08:26 Dose: 81 mg Atorvastatin Calcium (Lipitor) 40 mg PO HS [facility] Last Admin: 03/01/18 21:29 Dose: 40 mg Benzonatate (Tessalon) 100 mg PO Q6H PRN PRN Reason: Cough Bisacodyl (Dulcolax) 10 mg PO DAILYPRN PRN PRN Reason: Constipation Clonidine (Catapres) 0.1 mg PO Q4H PRN PRN Reason: SBP > 160____ Enoxaparin Sodium (Lovenox) 40 mg SC 0900 [facility] Last Admin: 03/02/18 08:26 Dose: 40 mg Guaifenesin (Mucinex) 600 mg PO Q12HR [facility] Last Admin: 03/02/18 08:26 Dose: 600 mg Hydralazine HCl (Apresoline) 10 mg SLOW IVP Q4H PRN PRN Reason: SBP > 180 and HR < 70 Levofloxacin 750 mg/ Device 150 mls @ 100 mls/hr IVPB 1200 [facility] Last Admin: 03/01/18 11:54 Dose: 150 mls Magnesium Oxide (Magnesium Oxide) 200 mg PO DAILY [facility] Last Admin: 03/02/18 08:26 Dose: 200 mg Mometasone Furoate/Formoterol Fumar (Dulera 200 Mcg/5 Mcg Inhaler) 2 puff INH BID-RT [facility] Last Admin: 03/02/18 07:33 Dose: 2 puff Nitroglycerin (Nitrostat) 0.4 mg SL Q5MIN PRN PRN Reason: Chest Pain Ondansetron HCl (Zofran) 4 mg IVP Q6H PRN PRN Reason: Nausea/Vomiting Pantoprazole Sodium (Protonix) 40 mg PO BID [facility] Last Admin: 03/02/18 08:26 Dose: 40 mg Prednisone (Prednisone) 20 mg PO QAM-WM [facility] Last Admin: 03/02/18 08:26 Dose: 20 mg Saccharomyces Boulardii (Florastor) 250 mg PO DAILY [facility] Last Admin: 03/02/18 08:26 Dose: 250 mg Senna/Docusate Sodium (Senokot S) 2 tab PO BID PRN PRN Reason: Constipation Sodium Chloride (Flush - Normal Saline) 10 ml IVF Q12HR [facility] Last Admin: 03/02/18 08:27 Dose: 10 ml Sodium Chloride (Flush - Normal Saline) 10 ml IVF PRN PRN PRN Reason: Saline Flush Spironolactone (Aldactone) 25 mg PO HS [facility] Last Admin: 03/01/18 21:30 Dose: 25 mg
--- NOTE | 2018-03-02 11:15 | CT ---
CT ARTERIOGRAM ABDOMEN WITH IV CONTRAST AND 3D MIP IMAGING: HISTORY: Abdominal pain. Possible ischemia. COMPARISON: 02/24/2018. FINDINGS: There is good contrast opacification of the abdominal aorta and visceral arteries. No significant st enosis or emboli are apparent. Superior mesenteric artery is widely patent. Scattered mild arterial calcification. Gallbladder is surgically absent. Minimal right pleural fluid. Interstitial thickening has develope d at the lung bases since the prior exam. IMPRESSION: 1. Atherosclerosis. No evidence of mesenteric ischemia. 2. Developing interstitial edema at the lung bases with minimal bilateral pleural fluid. POS: [facility]
[2018-03-02] MEDS ORDERED: Iopamidol 370 76% 100 ML VIAL ONE (15:02)
--- NOTE | 2018-03-02 18:53 | CON ---
DATE OF CONSULTATION: CONSULTING PHYSICIAN: Dr. Kuhn. REASON FOR CONSULTATION: COPD and pneumonia. This consultation encompassed 50 minutes time, of that time, greater than 50% spent with the patient and/or reviewing the patient's chart and films. HISTORY OF PRESENT ILLNESS: Ms. Guzman is a 78-year-old female, who was hospitalized 2 days ago with midepigastric pain, which is apparently attributable to a ventral hernia. She was noted to be hypoxic. She tells me she has been diagnosed with pneumonia, but I think this is probably more of a COPD exacerbation. Dr. Vaughn has told the hospitalist group that the patient has to be medically cleared from Pulmonary standpoint before undergoing operative repair of the hernia. Apparently, this would just be an elective procedure and can be further worked up as an outpatient. The patient states that she has seen Dr. Cook in the past for her breathing. She is on oxygen at home at 2 L nasal cannula. I could not find the results of her last PFTs in the office as her chart had been archived. PAST MEDICAL HISTORY: 1. Chronic obstructive pulmonary disease. 2. Depression. PAST SURGICAL HISTORY: 1. Bladder surgery. 2. Sinus surgery. 3. Appendectomy. 4. Cholecystectomy. SOCIAL HISTORY: Quit smoking 12 years ago. Does not consume alcohol. Does not use illicit drugs. FAMILY MEDICAL HISTORY: Remarkable for colon cancer, brain cancer, lung cancer, and kidney cancer. MEDICATIONS: Prior to admission: 1. Sertraline 50 mg daily. 2. Aldactone 25 mg daily. 3. Advair Diskus 250/50 one puff twice daily. 4. Albuterol inhaler. 5. Magnesium. 6. Prilosec 20 mg daily. 7. Zofran as needed. REVIEW OF SYSTEMS: A 12-point review of systems is otherwise negative. PHYSICAL EXAMINATION: VITAL SIGNS: Temperature 97.7, pulse 70, respirations 18, and O2 saturation 95% on 2 L. HEENT: Unremarkable. NECK: Without adenopathy or JVD. LUNGS: She has some crackles in the left base. Right side clear. CARDIAC: S1 and S2 regular without murmur. ABDOMEN: Soft. EXTREMITIES: No edema. LABORATORY DATA: White blood cell count 7.3, hematocrit 33.4, and platelet count 163. pH 7.46, pCO2 of 29, pO2 of 160. Sodium 142, potassium 4.2, chloride 110, CO2 of 25, BUN 8, creatinine 0.6, and glucose 123. I reviewed her x-ray. She has hyperinflation. Her CT was done, the abdomen shows a little infiltrative change in the left lower lobe. ASSESSMENT: 1. Chronic obstructive pulmonary disease with exacerbation. 2. Possible left lower lobe pneumonia. 3. Ventral hernia. PLAN: She can be switched to oral antibiotics at any time. I think she could probably be discharged to home tomorrow. She will need to see Dr. Cook in 3 to 4 weeks as an outpatient. I think she will need PFTs performed and a repeat chest x-ray performed prior to proceeding with any type of surgical intervention. She continues on breathing treatments and Dulera while in the hospital. All questions were answered. The patient already has oxygen set up at home. Job ID: [id number]
[2018-03-02] MEDS: Atorvastatin Calcium 40 MG TAB PO SCH (20:29)
[2018-03-02] MEDS: Spironolactone 25 MG TAB PO SCH (20:29)
[2018-03-02] MEDS: Amitriptyline HCl 25 MG TAB PO SCH (20:29)
--- NOTE | 2018-03-02 21:01 | PDOC.CTH ---
Cardiology Progress Note - Subjective No new issues. Breathing slowly improving. - Objective Vital Signs Temp Pulse Resp BP BP BP BP 03/02/18 19:36 97.3 F L 95 18 143/60 H 03/02/18 18:37 92 16 03/02/18 15:49 97.5 F L 93 14 137/64 03/02/18 13:17 71 18 03/02/18 12:42 135/60 140/65 03/02/18 11:37 97.7 F 70 16 125/54 L Pulse Ox Pulse Ox Pulse Ox 03/02/18 19:36 90 L 03/02/18 18:37 90 L 03/02/18 15:49 94 L 03/02/18 13:17 95 03/02/18 12:42 92 L 95 03/02/18 11:37 90 L Weight 124 lb 14.4 oz 03/01/18 03/02/18 03/03/18 06:59 06:59 06:59 Intake Total 1549 3140 400 Output Total 1540 357 8686 Balance 449 2740 -600 - Physical Examination General/Neuro: alert & oriented x3, NAD Neck: no JVD present Lungs: other: (reduced breath sounds. ) Heart: RRR Abdomen: NT/ND Extremities: other: (no edema.) - Telemetry Telemetry Rhythm: NSR - Labs Result Diagrams: 03/01/18 05:01 03/01/18 05:01 Troponin/CKMB CK-MB (CK-2) 2.4 ng/mL (0-6.6) 02/28/18 16:40 Troponin I 0.067 ng/mL (< 0.028) H 03/01/18 08:13 - Assessment/Plan 1. NSTEMI, demand ischemia. 2. COPD with exacerbaiton. 3. Possible pneumonia PLAN: - Continue conservative therapy. - COPD main issue. - Demand ischemia
[2018-03-03] MEDS: Enoxaparin Sodium 40 MG/0.4 ML SYRINGE SC SCH (09:39)
[2018-03-03] MEDS: Magnesium Oxide 400 MG TAB PO SCH (09:40)
[2018-03-03] MEDS: guaiFENesin ER 600 MG TAB PO SCH ×2 (09:40→20:32)
[2018-03-03] MEDS: predniSONE 20 MG TAB PO SCH ×2 (09:41→20:32)
[2018-03-03] MEDS: Saccharomyces boulardii 250 MG CAP PO SCH (09:42)
[2018-03-03] MEDS: Mometasone/Formoterol 120 PUFF INHALER INH SCH ×2 (11:18→19:06)
--- NOTE | 2018-03-03 12:20 | PDOC.PN ---
- Subjective Encounter Start Date: 03/03/18 Encounter Start Time: 12:18 Mr. Guzman was seen today in follow-up of COPD exacerbation. - Objective Resuscitation Status - Order Detail: 02/28/18 14:49 Resuscitation Status Routine Resuscitation Status: FULL: Full Resuscitation Discussed with: discussed w pt MAR Reviewed: Yes Vital Signs & Weight: Vital Signs (12 hours) Temp Pulse Resp BP Pulse Ox 03/03/18 11:29 101 H 21 H 128/61 93 L 03/03/18 11:18 96 16 03/03/18 11:11 95 03/03/18 11:10 95 16 03/03/18 08:00 98.1 F 98 20 112/35 L 94 L 03/03/18 05:02 106 H 18 93 L 03/03/18 04:44 93 L 03/03/18 04:00 97.4 F L 100 14 107/53 L Weight Weight 127 lb I&O: 03/02/18 03/03/18 03/04/18 06:59 06:59 06:59 Intake Total 3140 640 Output Total 400 1350 Balance 2740 -710 Result Diagrams: 03/01/18 05:01 03/01/18 05:01 Phys Exam - Physical Examination HEENT: PERRLA Respiratory: wheezing present + wheezing and rales in the left base Cardiovascular: RRR, no significant murmur, no rub Gastrointestinal: soft, non-tender, no distention, positive bowel sounds Musculoskeletal: no edema, pulses present Dx/Plan (1) PNA (pneumonia) Code(s): J18.9 - PNEUMONIA, UNSPECIFIED ORGANISM Status: Suspected Qualifiers: Pneumonia type: due to unspecified organism (2) COPD exacerbation Code(s): J44.1 - CHRONIC OBSTRUCTIVE PULMONARY DISEASE W (ACUTE) EXACERBATION Status: Acute (3) Acute respiratory failure with hypoxia Code(s): J96.01 - ACUTE RESPIRATORY FAILURE WITH HYPOXIA Status: Resolved Comment: on home dose of 2 lts by PR now (4) Chronic diastolic heart failure Code(s): I50.32 - CHRONIC DIASTOLIC (CONGESTIVE) HEART FAILURE Status: Acute - Plan * Community Acquired Pneumonia- continue Levaquin- she notes some more dyspnea today than yesterday- will repeat the CXR, and check a BNP- she may have some degree of volume overload * Chronic diastolic heart failure- will follow-up with CXR * COPD- continue Levaquin, and Dulera, steroids and duonebs.
--- NOTE | 2018-03-03 13:49 | PRG ---
DATE OF SERVICE: SUBJECTIVE: This morning, she is still coughing. X-ray shows worsening left-sided infiltrate and apparently some bloody sputum. OBJECTIVE: VITAL SIGNS: Saturations are 93% on 4 L, pulse 101, temperature 98, and blood pressure 120/61. CHEST: With extensive rhonchi and crackles, left greater than right. CARDIAC: Normal S1, S2. No gallops. ABDOMEN: No masses. IMPRESSION: 1. Left-sided pneumonia, probably aspiration. 2. Recent upper and lower endoscopy for abdominal pain. 3. Ventral hernia. PLAN: 1. We will add her Maxipime and steroid. Still on present neb treatment. 2. Sputum is being ordered for culture, we will follow. Job ID: [id number]
--- NOTE | 2018-03-03 14:29 | RAD ---
CHEST 2 VIEWS: HISTORY: Chest pain. Dyspnea. COMPARISON: 02/28/2018. FINDINGS: Cardiac silhouette and pulmonary vasculature unremarkable. Infiltrate at the left lower lobe has pro gressed. It is more dense with obscuration of the hemidiaphragm. A small amount of left pleural flu id. Lungs are otherwise hyperinflated. No evidence of pneumothorax. IMPRESSION: Further consolidation left lower lobe. Other findings are stable. POS: [facility]
[2018-03-03] MEDS: Lorazepam 0.5 MG TAB PO PRN ×2 (15:19→23:09)
--- NOTE | 2018-03-03 17:13 | PDOC.CTH ---
Cardiology Progress Note - Subjective No new issues. - Objective Vital Signs Temp Pulse Resp BP BP Pulse Ox 03/03/18 15:21 98.0 F 109 H 21 H 129/72 92 L 03/03/18 11:29 101 H 21 H 128/61 93 L 03/03/18 11:18 96 16 03/03/18 11:11 95 03/03/18 11:10 95 16 03/03/18 08:00 98.1 F 98 20 112/35 L 94 L Weight 127 lb 03/02/18 03/03/18 03/04/18 06:59 06:59 06:59 Intake Total 3140 640 Output Total 400 1350 Balance 2740 -710 - Physical Examination General/Neuro: alert & oriented x3, NAD Neck: no JVD present Lungs: unlabored respirations Heart: RRR Abdomen: NT/ND Extremities: other: (no edema) - Telemetry Telemetry Rhythm: NSR - Labs Result Diagrams: 03/01/18 05:01 03/01/18 05:01 Troponin/CKMB CK-MB (CK-2) 2.4 ng/mL (0-6.6) 02/28/18 16:40 Troponin I 0.067 ng/mL (< 0.028) H 03/01/18 08:13 - Assessment/Plan 1. NSTEMI, demand ischemia. 2. COPD with exacerbaiton. 3. Possible pneumonia PLAN: - Continue conservative therapy. - COPD main issue. - No new recs.
[2018-03-03] MEDS: Amitriptyline HCl 25 MG TAB PO SCH (20:31)
[2018-03-03] MEDS: Cefepime 1 GM in Sodium Chloride 0.9% 100 ML IVPB SCH (20:32)
[2018-03-03] MEDS: Atorvastatin Calcium 40 MG TAB PO SCH (20:32)
[2018-03-03] MEDS: Spironolactone 25 MG TAB PO SCH (20:32)
[2018-03-04] MEDS: Mometasone/Formoterol 120 PUFF INHALER INH SCH ×2 (06:23→18:35)
--- NOTE | 2018-03-04 09:40 | PDOC.PN ---
- Subjective Encounter Start Date: 03/04/18 Encounter Start Time: 09:39 Ms. Guzman was seen today in follow-up of Pneumonia. She is feeling a little better. She continues with a significant cough. She still has some dyspnea with exertion. - Objective Resuscitation Status - Order Detail: 02/28/18 14:49 Resuscitation Status Routine Resuscitation Status: FULL: Full Resuscitation Discussed with: discussed w pt MAR Reviewed: Yes Vital Signs & Weight: Vital Signs (12 hours) Temp Pulse Resp BP Pulse Ox 03/04/18 07:41 97.9 F 98 22 H 113/55 L 95 03/04/18 06:23 88 18 97 03/04/18 06:21 88 18 97 03/04/18 04:00 98.0 F 77 18 110/59 L 94 L 03/04/18 00:47 87 18 97 Weight Weight 125 lb 6.4 oz I&O: 03/03/18 03/04/18 03/05/18 06:59 06:59 06:59 Intake Total 640 1360 Output Total 1350 Balance -710 1360 Result Diagrams: 03/01/18 05:01 03/01/18 05:01 Phys Exam - Physical Examination HEENT: PERRLA + rales in the left base Cardiovascular: RRR, no significant murmur, no rub Gastrointestinal: soft, non-tender, no distention, positive bowel sounds Musculoskeletal: no edema, pulses present Dx/Plan (1) PNA (pneumonia) Code(s): J18.9 - PNEUMONIA, UNSPECIFIED ORGANISM Status: Suspected Qualifiers: Pneumonia type: due to unspecified organism (2) COPD exacerbation Code(s): J44.1 - CHRONIC OBSTRUCTIVE PULMONARY DISEASE W (ACUTE) EXACERBATION Status: Acute (3) Acute respiratory failure with hypoxia Code(s): J96.01 - ACUTE RESPIRATORY FAILURE WITH HYPOXIA Status: Resolved Comment: on home dose of 2 lts by DC now (4) Chronic diastolic heart failure Code(s): I50.32 - CHRONIC DIASTOLIC (CONGESTIVE) HEART FAILURE Status: Acute - Plan * Acute respiratory failure due to Pneumonia- CXR from yesterday noted. She has a worsening of the pneumonia- Cefepime was added * Chronic diastolic heart failure - better compensated * COPD- continue Duonebs, steroids, and Dulera.
[2018-03-04] MEDS: predniSONE 20 MG TAB PO SCH ×2 (09:50→20:51)
[2018-03-04] MEDS: Magnesium Oxide 400 MG TAB PO SCH (09:50)
[2018-03-04] MEDS: Enoxaparin Sodium 40 MG/0.4 ML SYRINGE SC SCH (09:50)
[2018-03-04] MEDS: Saccharomyces boulardii 250 MG CAP PO SCH (09:51)
[2018-03-04] MEDS: guaiFENesin ER 600 MG TAB PO SCH ×2 (09:51→20:52)
[2018-03-04] MEDS: Cefepime 1 GM in Sodium Chloride 0.9% 100 ML IVPB SCH ×2 (10:02→20:52)
--- NOTE | 2018-03-04 10:04 | PRG ---
DATE OF SERVICE: 03/04/2018 SUBJECTIVE: This morning, she is better. She is still coughing. OBJECTIVE: VITAL SIGNS: Saturations are 95% on 3 L, respiratory rate 22, temperature 97.9, pulse 98, and blood pressure 113/55. CHEST: Extensive rhonchi and crackles, left greater than right. CARDIAC: Normal S1 and S2. No gallops. ABDOMEN: No mass. IMPRESSION: 1. Left-sided pneumonia. 2. Cough. PLAN: Continue present neb treatments, antibiotics. Await sputum culture. Job ID: [id number]
[2018-03-04] MEDS: Amitriptyline HCl 25 MG TAB PO SCH (20:51)
[2018-03-04] MEDS: Spironolactone 25 MG TAB PO SCH (20:51)
[2018-03-04] MEDS: Atorvastatin Calcium 40 MG TAB PO SCH (21:30)
[2018-03-04] MEDS: Lorazepam 0.5 MG TAB PO PRN (23:48)
[2018-03-05] MEDS: Mometasone/Formoterol 120 PUFF INHALER INH SCH ×2 (06:59→19:12)
[2018-03-05 08:23] LABS: Hemoglobin 11.2 g/dL (12.0-16.0); Mean Corpuscular HGB CONC 33.4 g/dL (32.0-36.0); Mean Corpuscular Hemoglobin 31.8 pg (27.0-31.0); Mean Corpuscular Volume 95.1 fL (78.0-98.0); Mean Platelet Volume 6.6 fL (7.4-10.4); Platelet Count 234 thou/uL (130-400); RBC Distribution Width 13.4 % (11.5-14.5); Red Blood Cell (RBC) Count 3.52 mill/uL (4.20-5.40); White Blood Cell (WBC) Count 11.1 thou/uL (4.8-10.8)
[2018-03-05 08:35] LABS: Anion Gap 13 mmol/L (10-20); BUN (Urea Nitrogen) 10 mg/dL (9.8-20.1); Calc. Creatinine Clearance 65 mL/min (70-130); Calcium 8.9 mg/dL (7.8-10.44); Carbon Dioxide 26 mmol/L (23-31); Chloride 106 mmol/L (98-107); Estimated GFR-MDRD Greater than 90; Glucose 126 mg/dL (83-110); Potassium 3.6 mmol/L (3.5-5.1); Sodium 141 mmol/L (136-145)
[2018-03-05 09:27] LABS: Band 4 % (5-11); Eosinophils 1 % (0-10); Lymphocytes 3 % (21-51); MDiff Complete? YES; Metamyelocyte 2 % (0-0); Monocytes 4 % (0-10); Neutrophil 85 % (42-75); RBC Morphology Normal; Reactive Lymphocytes 1 % (0-10)
[2018-03-05] MEDS: Saccharomyces boulardii 250 MG CAP PO SCH (09:30)
[2018-03-05] MEDS: guaiFENesin ER 600 MG TAB PO SCH ×2 (09:30→21:44)
[2018-03-05] MEDS: Magnesium Oxide 400 MG TAB PO SCH (09:30)
[2018-03-05] MEDS: predniSONE 20 MG TAB PO SCH ×2 (09:31→21:44)
[2018-03-05] MEDS: Enoxaparin Sodium 40 MG/0.4 ML SYRINGE SC SCH (09:31)
[2018-03-05] MEDS: Cefepime 1 GM in Sodium Chloride 0.9% 100 ML IVPB SCH ×2 (09:32→21:42)
--- NOTE | 2018-03-05 10:11 | PRG ---
DATE OF SERVICE: 03/05/2018 SUBJECTIVE: This morning, she is still coughing a large volume of dark red blood. OBJECTIVE: VITAL SIGNS: Saturations are 95% on 3 L, respiratory rate 28, temperature 98, pulse 66, blood pressure 107/58. CHEST: Extensive rhonchi and crackles, left greater than right. CARDIAC: Normal S1, S2. No gallops. ABDOMEN: No masses. LABORATORY DATA: White count is only 11,000, platelet count normal. Lytes are normal. IMPRESSION: 1. Left lung pneumonia. 2. Atelectasis. 3. Ongoing hemoptysis. PLAN: CT of the chest is being ordered. Continue antibiotics. Supportive care. ADENDUM CATchest no mass, alveolar infifterate left lower lobe \\\ continue antibiotics Job ID: [id number] MTDD
--- NOTE | 2018-03-05 10:31 | CT ---
CT CHEST WITH CONTRAST: Technique: Multiple contiguous axial images were obtained through the chest with IV enhancement. Indications: Pneumonia. Hemoptysis. Comparison: 02-11-17 FINDINGS: Chronic lung parenchymal changes are again noted with hyperexpansion and early emphysematous change. There is a small left pleural effusion and tiny right pleural effusion. There is confluent infiltrate s/consolidation involving the posterior left lower lobe. Right lung appears clear of infiltrate. Ther e is a left hilar lymph node measuring 1.6 cm. Atherosclerotic changes in the thoracic aorta without dissection or aneurysm. The pulmonary arteries are opacified and there is no evidence of proximal pul monary embolus. Images through the upper abdomen reveal a cyst in the left lobe of the liver which is stable from gretta or exam. There are calcifications in the spleen again noted. IMPRESSION: 1. Confluent alveolar infiltrate/consolidation posterior left lower lobe. 2. Small bilateral pleural effusions. 3. Chronic lung parenchymal changes consistent with COPD and early emphysema. POS: [facility]
--- NOTE | 2018-03-05 14:26 | PDOC.PN ---
- Subjective Encounter Start Date: 03/05/18 Encounter Start Time: 14:24 Mr. Guzman was seen today in follow-up of pneumonia. She is breathing better now, but had some difficulty overnight. - Objective Resuscitation Status - Order Detail: 02/28/18 14:49 Resuscitation Status Routine Resuscitation Status: FULL: Full Resuscitation Discussed with: discussed w pt TOSIN Reviewed: Yes Vital Signs & Weight: Vital Signs (12 hours) Temp Pulse Resp BP BP Pulse Ox 03/05/18 12:36 98.3 F 88 20 138/67 96 03/05/18 11:47 93 18 97 03/05/18 07:38 98.2 F 66 20 117/58 L 95 03/05/18 06:59 86 16 97 03/05/18 06:58 86 16 97 03/05/18 04:00 97.8 F 81 20 125/60 96 Weight Weight 125 lb 6.4 oz I&O: 03/04/18 03/05/18 03/06/18 06:59 06:59 06:59 Intake Total 1360 1680 Output Total 1650 Balance 1360 30 Result Diagrams: 03/05/18 07:41 03/05/18 07:41 Phys Exam - Physical Examination HEENT: PERRLA + rales at the left base Cardiovascular: RRR, no significant murmur, no rub Gastrointestinal: soft, non-tender, no distention, positive bowel sounds Musculoskeletal: no edema, pulses present Dx/Plan (1) PNA (pneumonia) Code(s): J18.9 - PNEUMONIA, UNSPECIFIED ORGANISM Status: Suspected Qualifiers: Pneumonia type: due to unspecified organism (2) COPD exacerbation Code(s): J44.1 - CHRONIC OBSTRUCTIVE PULMONARY DISEASE W (ACUTE) EXACERBATION Status: Acute (3) Acute respiratory failure with hypoxia Code(s): J96.01 - ACUTE RESPIRATORY FAILURE WITH HYPOXIA Status: Resolved Comment: on home dose of [address] now (4) Chronic diastolic heart failure Code(s): I50.32 - CHRONIC DIASTOLIC (CONGESTIVE) HEART FAILURE Status: Acute - Plan * Pneumonia- Slowly improving- CT of the chest was noted- continue the current antibiotics. * Chronic diastolic heart failure- compensated * COPD- continue the current treatment with duonebs, and steroids, and Dulera
[2018-03-05] MEDS ORDERED: Iopamidol 370 76% 100 ML VIAL ONE (16:50)
[2018-03-05] MEDS: Amitriptyline HCl 25 MG TAB PO SCH (21:43)
[2018-03-05] MEDS: Spironolactone 25 MG TAB PO SCH (21:44)
[2018-03-05] MEDS: Atorvastatin Calcium 40 MG TAB PO SCH (21:44)
[2018-03-06] MEDS: Mometasone/Formoterol 120 PUFF INHALER INH SCH ×2 (06:57→18:41)
--- NOTE | 2018-03-06 08:56 | PRG ---
DATE OF SERVICE: SUBJECTIVE: This morning, she is doing better. Denies short of breath, less cough, still having minimal hemoptysis. OBJECTIVE: VITAL SIGNS: Blood pressure 114/56, sats are 97% on 3 L, temperature 98, respiratory rate 14. CHEST: Extensive rhonchi and crackles involving the left base. CARDIAC: Normal S1 and S2. No gallops. ABDOMEN: No masses. IMPRESSION: Chronic bronchiectasis involving the left lung with superimposed pneumonia. Small pleural effusion. PLAN: She is on oral antibiotics. Continue PT ambulation. If she is stable, she will be discharged home to follow up in the office in several weeks. Job ID: [id number]
[2018-03-06] MEDS: Enoxaparin Sodium 40 MG/0.4 ML SYRINGE SC SCH (09:15)
[2018-03-06] MEDS: Saccharomyces boulardii 250 MG CAP PO SCH (09:16)
[2018-03-06] MEDS: Magnesium Oxide 400 MG TAB PO SCH (09:16)
[2018-03-06] MEDS: predniSONE 20 MG TAB PO SCH ×2 (09:16→21:14)
[2018-03-06] MEDS: guaiFENesin ER 600 MG TAB PO SCH ×2 (09:16→21:14)
--- NOTE | 2018-03-06 16:46 | PDOC.PN ---
- Subjective Encounter Start Date: 03/06/18 Encounter Start Time: 10:00 Ms. Guzman was seen today in follow-up of pneumonia. She says she is feeling better. She was able to rest well last night. - Objective Resuscitation Status - Order Detail: 02/28/18 14:49 Resuscitation Status Routine Resuscitation Status: FULL: Full Resuscitation Discussed with: discussed w pt MAR Reviewed: Yes Vital Signs & Weight: Vital Signs (12 hours) Temp Pulse Pulse Pulse Resp BP BP 03/06/18 15:57 98 F 99 18 03/06/18 11:55 98.2 F 83 18 03/06/18 11:40 89 16 03/06/18 09:50 91 119 H 136/63 144/66 H 03/06/18 07:39 96 F L 80 18 03/06/18 06:57 88 14 03/06/18 06:56 88 14 BP BP Pulse Ox Pulse Ox Pulse Ox 03/06/18 15:57 132/60 95 03/06/18 11:55 119/58 L 95 03/06/18 11:40 98 03/06/18 09:50 93 L 92 L 03/06/18 07:39 127/59 L 96 03/06/18 06:57 97 03/06/18 06:56 97 Weight Weight 126 lb 3.2 oz I&O: 03/05/18 03/06/18 03/07/18 06:59 06:59 06:59 Intake Total 1680 950 Output Total 1650 900 Balance 30 50 Result Diagrams: 03/05/18 07:41 03/05/18 07:41 Phys Exam - Physical Examination HEENT: PERRLA + rales in the left lung base, + scattered rhonchi Cardiovascular: RRR, no significant murmur, no rub Gastrointestinal: soft, non-tender, no distention, positive bowel sounds Musculoskeletal: pulses present, edema present trace edema in both lower extremities Neurological: non-focal Dx/Plan (1) PNA (pneumonia) Code(s): J18.9 - PNEUMONIA, UNSPECIFIED ORGANISM Status: Suspected Qualifiers: Pneumonia type: due to unspecified organism (2) COPD exacerbation Code(s): J44.1 - CHRONIC OBSTRUCTIVE PULMONARY DISEASE W (ACUTE) EXACERBATION Status: Acute (3) Acute respiratory failure with hypoxia Code(s): J96.01 - ACUTE RESPIRATORY FAILURE WITH HYPOXIA Status: Resolved Comment: on home dose of 2 lts by [place] now (4) Chronic diastolic heart failure Code(s): I50.32 - CHRONIC DIASTOLIC (CONGESTIVE) HEART FAILURE Status: Acute - Plan * Pneumonia- improving after broadening her antibiotic coverage * Chronic diastolic heart failure- compensated * COPD- stable. * Disposition per Data Communications Engineer
[2018-03-06] MEDS: Spironolactone 25 MG TAB PO SCH (21:14)
[2018-03-06] MEDS: Amitriptyline HCl 25 MG TAB PO SCH (21:14)
[2018-03-06] MEDS: Atorvastatin Calcium 40 MG TAB PO SCH (21:14)
[2018-03-06] MEDS: Lorazepam 0.5 MG TAB PO PRN (21:34)
[2018-03-07] MEDS ORDERED: Cepastat Lozenges 1 LOZ PO PRN (04:06)
[2018-03-07] MEDS: Mometasone/Formoterol 120 PUFF INHALER INH SCH (06:43)
[2018-03-07 08:42] VITALS: BP 123/58; TEMP 97.5
[2018-03-07] MEDS: Magnesium Oxide 400 MG TAB PO SCH (08:43)
[2018-03-07] MEDS: Saccharomyces boulardii 250 MG CAP PO SCH (08:44)
[2018-03-07] MEDS: guaiFENesin ER 600 MG TAB PO SCH (08:44)
[2018-03-07] MEDS: predniSONE 20 MG TAB PO SCH (08:44)
[2018-03-07] MEDS: Enoxaparin Sodium 40 MG/0.4 ML SYRINGE SC SCH (08:44)
--- NOTE | 2018-03-07 11:49 | PRG ---
DATE OF SERVICE: 03/07/2018 SUBJECTIVE: The patient is doing well and wants to go home. OBJECTIVE: VITAL SIGNS: On exam, temperature is 97.5, pulse 73, respirations 16, O2 sat 94% on 3 L, and blood pressure 123/58. HEENT: Unremarkable. NECK: No JVD. LUNGS: Few basilar crackles. CARDIAC: S1 and S2, regular. ABDOMEN: Soft. EXTREMITIES: No edema. LABORATORY DATA: No labs were done today. ASSESSMENT: 1. Stable severe chronic obstructive pulmonary disease. 2. Chronic bronchiectasis. 3. Pneumonia. 4. Small pleural effusion. PLAN: This patient is stable for discharge to home. I would finish out 7 days of Levaquin and taper her prednisone over couple of weeks. Continue breathing treatments. Job ID: [id number]
--- NOTE | 2018-03-07 11:59 | PDOC.PN ---
- Subjective Encounter Start Date: 03/07/18 Encounter Start Time: 11:57 Ms. Guzman was seen today in follow-up of Pneumonia. She says she is feeling much better and wants to go home. - Objective Resuscitation Status - Order Detail: 02/28/18 14:49 Resuscitation Status Routine Resuscitation Status: FULL: Full Resuscitation Discussed with: discussed w pt TOSIN Reviewed: Yes Vital Signs & Weight: Vital Signs (12 hours) Temp Pulse Resp BP Pulse Ox 03/07/18 08:45 94 L 03/07/18 08:36 97.5 F L 73 16 123/58 L 94 L 03/07/18 06:43 66 20 96 03/07/18 06:28 96 03/07/18 06:26 66 20 96 03/07/18 04:14 98.0 F 79 14 141/65 H 96 03/07/18 01:13 97 Weight Weight 127 lb I&O: 03/06/18 03/07/18 03/08/18 06:59 06:59 06:59 Intake Total 950 980 Output Total 900 Balance 50 980 Result Diagrams: 03/05/18 07:41 03/05/18 07:41 Phys Exam - Physical Examination HEENT: PERRLA Respiratory: no wheezing + rales at the left base Cardiovascular: RRR, no significant murmur, no rub Gastrointestinal: soft, non-tender, no distention, positive bowel sounds Musculoskeletal: no edema Dx/Plan (1) PNA (pneumonia) Code(s): J18.9 - PNEUMONIA, UNSPECIFIED ORGANISM Status: Suspected Qualifiers: Pneumonia type: due to unspecified organism (2) COPD exacerbation Code(s): J44.1 - CHRONIC OBSTRUCTIVE PULMONARY DISEASE W (ACUTE) EXACERBATION Status: Acute (3) Acute respiratory failure with hypoxia Code(s): J96.01 - ACUTE RESPIRATORY FAILURE WITH HYPOXIA Status: Resolved Comment: on home dose of 2 lts by [place] now (4) Chronic diastolic heart failure Code(s): I50.32 - CHRONIC DIASTOLIC (CONGESTIVE) HEART FAILURE Status: Acute - Plan * Pneumonia- improved * Chronic diastolic heart failure- compensated * Stable for discharge home.
--- NOTE | 2018-03-08 02:19 | DIS ---
DATE OF ADMISSION: 02/28/2018 DATE OF DISCHARGE: 03/07/2018 PRIMARY CARE PHYSICIAN: Dr. Juan Alberto Almazan. DISCHARGE DISPOSITION: Home. PRIMARY DISCHARGE DIAGNOSES: 1. Acute respiratory failure with hypoxemia. 2. Community-acquired pneumonia. 3. Acute on chronic diastolic congestive heart failure. 4. History of chronic obstructive pulmonary disease. DISCHARGE MEDICATIONS: Include: 1. Levaquin 500 mg p.o. daily for 5 days. 2. Prednisone 20 mg twice a day for 5 days. 3. Florastor 250 mg p.o. daily. 4. Spironolactone 25 mg at bedtime. 5. Zoloft 50 mg at bedtime. 6. Advair 1 inhalation twice a day. 7. Elavil 50 mg at bedtime. 8. ProAir two puffs q.4 hours as needed. PROCEDURES DONE: During the admission, the patient had an echo cardiogram in which the ejection fraction was estimated at 55% to 60%. There was some E/A flow reversal noted suggestive of diastolic dysfunction. The patient had a CT angiogram of the abdomen showing some arthrosclerosis, but no evidence of mesenteric ischemia. There was some interstitial edema at the lung bases and minimal pleural effusion. The patient had a CT scan of the chest, showing confluency alveolar infiltrates in the posterior left lower lobe and small bilateral pleural effusions and changes consistent with COPD. CODE STATUS: Full code. ALLERGIES: TO PENICILLIN. HOSPITAL COURSE: Ms. Guzman is a pleasant 78-year-old female who presented to the emergency room complaining of shortness of breath. She was found to have a left lower lobe infiltrate and it is likely that the pneumonia was the cause of the respiratory failure. She was placed on IV antibiotics. Pulmonary was also consulted given the degree of her dyspnea and symptoms. Her antibiotics had to be escalated during her hospital stay and a CT of the chest was done, which verified the left lower lobe pneumonia, but did not show any findings such as empyema or pleural effusion. After a few more days of IV antibiotics, she began to turn the corner and improved and was subsequently able to be discharged home on 03/17/2018, to have close outpatient followup. Job ID: [id number]
--- NOTE | 2018-03-14 14:51 | PQF ---
GEREMIAS KATHLEEN RICHA MD [id number] [facility] [id number] CLINICAL DOCUMENTATION CLARIFICATION FORM: POST DISCHARGE Addendum to original discharge summary date: ____ Late entry note date: __ CLINICAL DOCUMENTATION CLARIFICATION FORM: Please check appropriate box(es) to clarify if the following diagnosis has been ruled in or ruled out: SEPSIS [ X ] Ruled in diagnosis [X ] Continue to treat [ ] Resolved [ ] Ruled out diagnosis [ ] Cannot rule out diagnosis [ ] Other diagnosis [ ] Unable to determine In addition, please specify: Present on Admission (POA): [ X] Yes [ ] No [ ] Unable to determine To be completed by CDI/Coding staff for physician review: Present Clinical Indicators - Signs / Symptoms / Labs Results and Location in Medical Record [ ] Lactic acid 3.1 H&P p 2 (LABORATORY DATA) [ ] Tachycardia upon presentation [ ] Neutrophilia with evidence of infection [ ] Present Risk Factors Results and Location in Medical Record [ ] Acute respiratory failure with hypoxemia DC Summary p1 [ ] Acute COPD exacerbation H&P p 3 [ ] Community acquired pneumonia DC Summary p1 [ ] Acute on chronic diastolic congestive heart failure DC Summary p1 Present Treatments Results and Location in Medical Record [ ] She will be started on IV antibiotics and gentle IV fluids. Blood cultures and urine cultures have been obtained in the ER and we will follow the results. She will be monitored on telemetry unit. Repeat lactic acid in 2 hours per sepsis protocol. H&P p3 [ ] [ ] [ ] CDS/Journal Clerk Signature: Aleida Troy CCS Phone #: [phone] Date/Time: 03/12/2018 2:30PM (This form is maintained as a part of the permanent medical record) 2014 [employer] All Rights Reserved Aleida [email or web address] [phone] MTDD
--- NOTE | 2018-03-14 22:58 | EKG ---
Test Reason : Blood Pressure : / mmHG Vent. Rate : 107 BPM Atrial Rate : 107 BPM P-R Int : 112 ms QRS Dur : 074 ms QT Int : 332 ms P-R-T Axes : 078 061 050 degrees QTc Int : 443 ms Sinus tachycardia Possible Left atrial enlargement Nonspecific ST and T wave abnormality Abnormal ECG Confirmed by KARIS FREEDMAN, MICKI ([id number]), assistant film editor [employer] ([id number]) on 03/14/2018 10:57:19 PM Referred By: Confirmed By:MICKI DYSON MD
== END 2018-03-07 13:20 | disposition home or self-care (01) | DRG 871 ==
LOC: ERS 10:30 → 2NO 13:51
PROVIDERS: ADMIT Internal Medicine; ATTEND Internal Medicine
DX: A41.9 Sepsis, unspecified organism (principal); J96.01 Acute respiratory failure with hypoxia; J18.8 Other pneumonia, unspecified organism; I50.33 Acute on chronic diastolic (congestive) heart failure; I21.A1 Myocardial infarction type 2; J44.1 Chronic obstructive pulmonary disease with (acute) exacerbation; J98.11 Atelectasis; R04.2 Hemoptysis; J44.0 Chronic obstructive pulmonary disease with (acute) lower respiratory infection; Z99.81 Dependence on supplemental oxygen; Z87.891 Personal history of nicotine dependence; Z79.51 Long term (current) use of inhaled steroids; K43.9 Ventral hernia without obstruction or gangrene
CPT/HCPCS: 36415; 71045; 71046; 71260; 74175; 80048; 80053; 81003; 82550; 82553; 82805; 83605; 83690; 83880; 84484; 85025; 87040; 87070; 87086; 87205; 87633; 87804; 87899; 88305; 88312; 88313; 93005; 93306; 94640; 94660; 96365; 96375; G8978-GP-CM; G8979-GP-CK; G8987-GO-CL; G8988-GO-CK; J0692; J1100; J1650; J1956; J2060; J2920; J7050; J7506; J7611; J7620

== ENCOUNTER 2018-03-08 07:45 | Inpatient (IN) | payer MEDICARE, BC ==
[2018-03-08 08:12] LABS: #Eosinphils 0.2 thou/uL (0.0-0.7); #Lymphocytes 2.1 thou/uL (1.20-3.40); #Monocytes 0.9 thou/uL (0.11-0.59); #Neutrophils 16.1 thou/uL (1.40-6.50); %Lymphocytes 10.7 % (21.0-51.0); %Monocytes 4.8 % (0.0-10.0); %Neutrophils 83.5 % (42.0-75.0); Hemoglobin 13.5 g/dL (12.0-16.0); Mean Corpuscular HGB CONC 32.3 g/dL (32.0-36.0); Mean Corpuscular Volume 95.9 fL (78.0-98.0); Mean Platelet Volume 6.2 fL (7.4-10.4); Platelet Count 382 thou/uL (130-400); RBC Distribution Width 13.4 % (11.5-14.5); Red Blood Cell (RBC) Count 4.37 mill/uL (4.20-5.40); White Blood Cell (WBC) Count 19.3 thou/uL (4.8-10.8)
[2018-03-08] MEDS ORDERED: Lorazepam 2 MG/ML VIAL ONE ×2 (08:12→12:44)
[2018-03-08] MEDS ORDERED: Water For Inject, Bacteriostat 30 ML ONE (08:13)
[2018-03-08] MEDS ORDERED: Ondansetron PF 4 MG/2 ML Vial ONE (08:13)
[2018-03-08] MEDS ORDERED: methylPREDNISolone Sod Succ/PF 125 MG/2 ML VIAL ONE (08:13)
[2018-03-08 08:27] LABS: INR-International Normal Ratio 1.1; Prothrombin Time 14.7 SEC (12.0-14.7)
[2018-03-08 08:34] LABS: Actual Bicarbonate (HCO3a) 27.2 mEq/L (22-28); Analyzer IN Cardio ER; Calcium, Ionized 1.14 mmol/L (1.12-1.30); Carboxyhemoglobin (COHb) 0.8 gm% (0.0-3.0); Hemoglobin (Hb) 14.1 g/dL (12.0-16.0); O2 Tension (PaO2) 66.5 mmHg (> 70.0); Potassium - ABG Lab 3.24 mmol/L (3.70-5.30)
[2018-03-08 08:35] LABS: ALT (SGPT) 52 U/L (8-55); AST (SGOT) 29 U/L (5-34); Albumin 3.2 g/dL (3.4-4.8); Alkaline Phosphatase 77 U/L (40-150); Anion Gap 14 mmol/L (10-20); BUN (Urea Nitrogen) 13 mg/dL (9.8-20.1); Bilirubin, Total 0.6 mg/dL (0.2-1.2); Calc. Creatinine Clearance 0 mL/min (70-130); Calcium 8.7 mg/dL (7.8-10.44); Carbon Dioxide 26 mmol/L (23-31); Chloride 103 mmol/L (98-107); Estimated GFR-MDRD 79; Globulin 2.9 g/dL (2.4-3.5); Glucose 135 mg/dL (83-110); Potassium 3.5 mmol/L (3.5-5.1); Protein, Total 6.1 g/dL (6.0-8.3); Sodium 139 mmol/L (136-145)
[2018-03-08 08:35] LABS: Puncture Site LBA
--- NOTE | 2018-03-08 09:47 | RAD ---
CHEST 1 VIEW: Date: 03/08/18 HISTORY: Cough. COMPARISON: Radiograph dated 02/28/[address] from 03/05/18. FINDINGS: Multifocal air space opacity left lung is slightly worse. There is layering left effusion. Superimpos ed mild pulmonary edema. IMPRESSION: Worsening multifocal pneumonia left lung. POS: [facility]
--- NOTE | 2018-03-08 10:22 | CT ---
CT ANGIOGRAM CHEST WITH CONTRAST: Date: 03/08/18 HISTORY: Dyspnea. Cough. COMPARISON: CT chest dated 03/05/18. Chest radiograph dated 03/08/18. FINDINGS: There is marked increased consolidation throughout the left lung, as well as involvement of the lingu la and posterior segment left upper lobe. Right lung is relatively clear. Background emphysematous ch anges. There are some developing AP window and subcarinal lymph nodes. The pulmonary trunk size at upper luna its of normal, measuring 31 mm. Aortic contour is normal. No proximal segmental pulmonary arterial filling defect. No significant per icardial effusion. There is a hypodensity in the left lobe of the liver, likely a cyst, unchanged. Th ere is no acute osseous abnormality. IMPRESSION: Progressive worsening left lower lobe pneumonia. There is now involvement of the lingula and posterio r segment left upper lobe. POS: [facility]
[2018-03-08 11:04] LABS: Bilirubin Negative (Negative); Blood, Urine Negative (Negative); Glucose, Urine (Dipstick) Negative (Negative); Leukocyte Negative (Negative); Nitrite Negative (Negative); Protein, Urine (Dipstick) Negative (Neg-Trace); Urobilinogen 0.2 mg/dL (0.2-1.0); pH, Urine 6.5 (5.0-9.0)
[2018-03-08 11:10] LABS: Clarity Clear (Clear)
[2018-03-08] MEDS ORDERED: Cefepime 1 GM VIAL ONE (11:13)
[2018-03-08 11:49] LABS: Troponin I 0.053 ng/mL (< 0.028)
[2018-03-08] MEDS ORDERED: Acetaminophen 325 MG TAB PO PRN (12:05)
[2018-03-08] MEDS ORDERED: hydrALAZINE 20 MG/ML VIAL SLOW IVP PRN (12:05)
[2018-03-08] MEDS ORDERED: VANCOMYCIN IVPB PRN (12:13)
--- NOTE | 2018-03-08 14:04 | HP ---
PRIMARY CARE PHYSICIAN: Juan Alberto Almazan MD CHIEF COMPLAINT: Shortness of breath. HISTORY OF PRESENT ILLNESS: Ms. Guzman is a very pleasant 78-year-old female, who was just discharged yesterday for acute respiratory failure with hypoxemia due to pneumonia. She says that she was doing fine when she got home and was resting okay. Then about 2:00 a.m. in the morning, she got up, she was feeling very short of breath. She started having a panic attack according to her daughter and then coughed up some bright red blood. This made her even more panicked. She gave herself a breathing treatment, hoping that this would help, but she did not get any improvement with this. Her breathing got progressively worse and she came to the ER for evaluation. In the ER, she was found to be in respiratory distress. She was tachypneic and placed on BiPAP. A chest x-ray was done, which showed apparent worsening of bilateral infiltrates as well as a densening of the left lower lobe infiltrate. Her white blood cell count was elevated and she is being admitted for unresolved pneumonia. The patient is currently on BiPAP and unable to give me any further information. REVIEW OF SYSTEMS: The patient is currently unable due to being on BiPAP and she is tachypneic. PAST MEDICAL HISTORY: The past medical history is taken from previous hospital stay just a few days ago in fact and includes a history of recent pneumonia as well as COPD and chronic diastolic heart failure. PAST SURGICAL HISTORY: She has had bladder surgery, sinus surgery, appendectomy, and cholecystectomy. PSYCHIATRIC HISTORY: Includes depression. SOCIAL HISTORY: She is a former smoker. She quit 12 years ago. No history of any alcohol or drug use. She lives at home with family. She is ambulatory and independent with her ADLs. Code status is full code. FAMILY HISTORY: Significant for colon cancer in her father and brother. Her mother had kidney cancer. Sisters had lung cancer and brain cancer. ALLERGIES: TO PENICILLIN. MEDICATIONS: Include; 1. Sertraline 50 mg daily. 2. Aldactone 25 mg daily. 3. Advair Diskus. 4. Albuterol nebs. 5. Levaquin 500 mg daily. 6. Prednisone taper. PHYSICAL EXAMINATION: VITAL SIGNS: Blood pressure was 163/84, heart rate 123, respiratory rate of 38, temperature is 97.6, and O2 sat was 90% on BiPAP. GENERAL: She is well developed and well nourished, and she does appear to be in some distress due to dyspnea. HEENT: Pupils are equal, round, and reactive. Extraocular muscles are intact. Her sclerae are anicteric. Throat; there is no erythema, no exudates. NECK: No adenopathy. No bruits. LUNGS: She has decreased breath sounds bilaterally. Prior to my listening, it is reported that she had significant rhonchi bilaterally. She does have some faint rales at the bases. CARDIOVASCULAR: Heart rate is tachycardic. There is no murmurs or clicks, no rubs. ABDOMEN: Slightly distended, tympanic to percussion, and there is no evidence of any gross organomegaly. EXTREMITIES: She has trace pedal edema. She has some varicose veins. NEUROLOGIC: She is moving all of her extremities and her muscle strength appears intact. LABORATORY RESULTS: Her white blood cell count is 19.3, hemoglobin 13.5, hematocrit is 41.9, platelet count is 382. INR is 1.1. Sodium 139, potassium 3.5, chloride is 103, CO2 is 26, BUN of 13, creatinine 0.71, glucose is 135. BNP was 498. Troponin was 0.019. ABG was pH is 7.4, pCO2 is 45, and pO2 is 66.5. The patient had a chest x-ray again showing possible worsening bilateral interstitial infiltrates and a densening in the left lower lobe and this was by my reading. Of course, this could be due to the x-ray technique. ASSESSMENT AND PLAN: This is a 78-year-old female, who is being admitted for acute respiratory failure with hypoxemia after just being discharged yesterday. It is unclear whether or not this is a worsening of the pneumonia, whether or not she has some volume overload superimposed. Her proBNP was actually lower than that a few days ago when she was in the hospital. She is coughing up some bright red blood, which makes it concerning that she could have a superimposed pulmonary embolism or some other process. She will be readmitted to the IM. 1. Acute respiratory failure with hypoxemia. We will get a stat CT angiogram to rule out pulmonary embolism and this will help further delineate the infiltrate and helped to see if there is any pulmonary edema. We will place her back on cefepime as she seemed to improve when she was on this particular antibiotic as well as continue vancomycin. Pulmonology will be consulted. If it is found that she has significant pulmonary edema on CT, then Lasix will be given. 2. Chronic obstructive pulmonary disease. Possibly, she has a chronic obstructive pulmonary disease exacerbation. We will place her back on IV steroids and then slowly taper once again. Continue a long-acting beta agonist and further recommendations are to follow. Job ID: [id number]
[2018-03-08 14:15] LABS: Troponin I 0.062 ng/mL (< 0.028)
[2018-03-08 14:23] VITALS: BMI 20.5
--- NOTE | 2018-03-08 14:31 | CON ---
DATE OF CONSULTATION: 03/08/2018 TIME SPENT: This is 35 minutes of critical care time. HISTORY OF PRESENT ILLNESS: This patient was just discharged from the hospital yesterday and actually looked very good at the time going home. Family said she had a good evening at home, but woke up in the middle of the night extremely short of breath. She began coughing up some blood. She tried to tough it out, but ended up back in the ER and was placed on BiPAP. A CT scan performed showed advancement of left lower lobe infiltrate. PAST MEDICAL HISTORY: 1. COPD. 2. Depression. PAST SURGICAL HISTORY: Bladder surgery, sinus surgery, appendectomy, and cholecystectomy. SOCIAL HISTORY: Quit smoking 12 years ago. Does not smoke. FAMILY MEDICAL HISTORY: Remarkable for colon cancer, brain cancer, lung cancer, and kidney cancer. MEDICATIONS: She was taking at home; 1. Prednisone. 2. Spironolactone. 3. Sertraline. 4. . 5. Levaquin. 6. Fluticasone. 7. Amitriptyline. 8. Albuterol. PHYSICAL EXAMINATION: VITAL SIGNS: Temperature 97, pulse 97, O2 sat 100%, blood pressure 103/62, and respiratory rate 27. GENERAL: She is an elderly lady. She is currently comfortable on BiPAP. HEENT: Unremarkable. NECK: No adenopathy or JVD. LUNGS: Crackles in the left base. Right side clear. CARDIAC: S1 and S2, regular. ABDOMEN: Soft, nontender. EXTREMITIES: No edema. LABORATORY DATA: White blood cell count 19.3, hematocrit 41.9, and platelet count 382. PH of 7.40, pCO2 of 45, and pO2 of 66 on BiPAP with an FiO2 of 60%. Sodium 139, potassium 3.5, chloride 103, CO2 of 26, BUN 13, creatinine 0.7, and glucose 135. BNP 498. Troponin 0.53. ASSESSMENT: 1. Pneumonia - perhaps recurrence versus inadequate coverage versus hospital-acquired. 2. Ventral hernia. 3. History of underlying chronic obstructive pulmonary disease. PLAN: The patient is being admitted to the Intermediate Care Unit. She is currently on antibiotics, steroids, and I have added breathing treatments. We will recheck her labs tomorrow and do another chest x-ray tomorrow. Dr. Cook will reassume care tomorrow. Job ID: [id number]
[2018-03-08] MEDS ORDERED: Iopamidol 370 76% 100 ML VIAL ONE (17:12)
[2018-03-08 18:00] LABS: Bilirubin Negative (Negative); Blood, Urine Negative (Negative); Clarity CLEAR (Clear); Glucose, Urine (Dipstick) Negative (Negative); Leukocyte Negative (Negative); Nitrite Negative (Negative); Protein, Urine (Dipstick) Negative (Neg-Trace); Specific Gravity, Urine 1.017 (1.002-1.036); Urobilinogen 0.2 mg/dL (0.2-1.0)
[2018-03-08] MEDS: Cefepime 1 GM in Sodium Chloride 0.9% 100 ML IVPB SCH (23:25)
[2018-03-09 05:14] LABS: Anion Gap 13 mmol/L (10-20); BUN (Urea Nitrogen) 17 mg/dL (9.8-20.1); Calc. Creatinine Clearance 61 mL/min (70-130); Calcium 8.3 mg/dL (7.8-10.44); Carbon Dioxide 26 mmol/L (23-31); Chloride 103 mmol/L (98-107); Estimated GFR-MDRD 86; Glucose 97 mg/dL (83-110); Sodium 138 mmol/L (136-145)
[2018-03-09 05:37] LABS: #Lymphocytes 0.4 thou/uL (1.20-3.40); #Monocytes 0.4 thou/uL (0.11-0.59); #Neutrophils 13.3 thou/uL (1.40-6.50); %Basophils 0.1 % (0.0-1.0); %Eosinophils 0.3 % (0.0-10.0); %Lymphocytes 3.1 % (21.0-51.0); %Monocytes 2.6 % (0.0-10.0); Mean Corpuscular HGB CONC 33.3 g/dL (32.0-36.0); Mean Corpuscular Hemoglobin 31.9 pg (27.0-31.0); Mean Corpuscular Volume 95.8 fL (78.0-98.0); Mean Platelet Volume 6.3 fL (7.4-10.4); Platelet Count 280 thou/uL (130-400); RBC Distribution Width 13.4 % (11.5-14.5); Red Blood Cell (RBC) Count 3.45 mill/uL (4.20-5.40); White Blood Cell (WBC) Count 14.2 thou/uL (4.8-10.8)
--- NOTE | 2018-03-09 08:48 | RAD ---
SINGLE VIEW OF THE CHEST: Comparison: 03-08-18 History: Pneumonia. FINDINGS: Single view of the chest shows a normal sized cardiomediastinal silhouette. There is consolidation in the left lower lobe which has improved compared to the prior examination. Increased interstitial mar kings are present. IMPRESSION: Improving left lower lobe pneumonia. POS: [facility]
[2018-03-09] MEDS: Enoxaparin Sodium 40 MG/0.4 ML SYRINGE SC SCH (09:42)
[2018-03-09] MEDS: Vancomycin HCl 1 GM in Premix Bag 1 BAG IVPB SCH (10:19)
--- NOTE | 2018-03-09 11:34 | PRG ---
DATE OF SERVICE: 03/09/2018 SUBJECTIVE: Gregoria Guzman is a 78-year-old female, who has remained in the hospital without extensive left-sided pneumonia. OBJECTIVE: VITAL SIGNS: Temperature is 98, pulse 80, and blood pressure 102/55. GENERAL: Awake, alert, and responsive. CHEST: Decreased breath sounds. No wheezing. CARDIAC: Normal S1 and S2. No gallops. ABDOMEN: No masses. LABORATORY DATA: All cultures during the last admission were negative. X-ray shows a very impressive left-sided pneumonia, infiltrate. Though, I do not see any mass. IMPRESSION: 1. Left-sided pneumonia, slow to resolving. 2. Chronic obstructive pulmonary disease. PLAN: Consider diagnostic bronchoscopy when she is stable. I agree with present antibiotics, neb treatments, and steroids. We will discuss with family. Job ID: [id number]
[2018-03-09] MEDS: Cefepime 1 GM in Sodium Chloride 0.9% 100 ML IVPB SCH ×2 (11:49→23:43)
--- NOTE | 2018-03-09 13:00 | PDOC.PN ---
- Subjective Encounter Start Date: 03/09/18 Encounter Start Time: 12:57 Ms. Guzman was seen today in follow-up of Pneumonia. She is feeling better today. She is off Bipap, and she is less short of breath. - Objective Resuscitation Status - Order Detail: 03/08/18 09:35 Resuscitation Status Routine Resuscitation Status: FULL: Full Resuscitation MAR Reviewed: Yes Vital Signs & Weight: Vital Signs (12 hours) Temp Pulse Resp BP Pulse Ox 03/09/18 11:45 97.5 F L 96 22 H 128/60 94 L 03/09/18 11:18 99 16 98 03/09/18 08:22 98 03/09/18 07:56 98.0 F 88 24 H 102/50 L 98 03/09/18 07:47 86 16 94 L 03/09/18 03:54 98.4 F 85 16 103/50 L 98 03/09/18 02:29 79 16 99 Weight Weight 123 lb I&O: 03/08/18 03/09/18 03/10/18 06:59 06:59 06:59 Intake Total 500 Output Total 910 Balance -410 Result Diagrams: 03/09/18 04:21 03/09/18 04:21 Phys Exam - Physical Examination HEENT: PERRLA + rales at the left lung base, Cardiovascular: RRR, no significant murmur, no rub Gastrointestinal: soft, non-tender, no distention, positive bowel sounds Musculoskeletal: no edema Dx/Plan (1) PNA (pneumonia) Code(s): J18.9 - PNEUMONIA, UNSPECIFIED ORGANISM Status: Suspected Qualifiers: Pneumonia type: due to unspecified organism (2) Acute respiratory failure with hypoxia Code(s): J96.01 - ACUTE RESPIRATORY FAILURE WITH HYPOXIA Status: Resolved Comment: on home dose of 2 lts by [place] now (3) COPD (chronic obstructive pulmonary disease) Status: Acute (4) Chronic diastolic heart failure Code(s): I50.32 - CHRONIC DIASTOLIC (CONGESTIVE) HEART FAILURE Status: Chronic - Plan * Acute respiratory failure due to pneumonia- improving- continue Cefepime and Vancomycin * Chronic diastolic heart failure- compensated * COPD- stable * PCCM evaluation noted- she may have bronchoscopy in one to 2 days, considering the slow resolution of this pneumonia
--- NOTE | 2018-03-09 15:00 | PQF ---
CLINICAL DOCUMENTATION IMPROVEMENT CLARIFICATION FORM: ICD-10 Updated PLEASE DO AN ADDENDUM TO THE PROGRESS NOTE WITH ANY DOCUMENTATION UPDATES OR ADDITIONS AND CARRY THROUGH TO DC SUMMARY. THANK YOU. DATE: 03/09/18 ATTN: DR. HOLT Please exercise your independent, professional judgment in responding to the clarification form. Clinical indicators are provided on the bottom of this form for your review Please check appropriate box(s) to clarify if the following diagnosis has been ruled in or ruled out: "SEPSIS" [X ] Ruled in diagnosis [ X ] Continue to treat [ ] Resolved [ ] Ruled out diagnosis [ ] Cannot rule out diagnosis [ ] Other diagnosis [ ] Unable to determine In addition, please specify: Present on Admission (POA): [ X ] Yes [ ] No [ ] Unable to determine For continuity of documentation, please document condition throughout progress notes and discharge summary. Thank You. CLINICAL INDICATORS - SIGNS / SYMPTOMS / LABS ER NOTE: "SEPSIS" PULSE 129 RR 40 WBC 19.3 RISKS: PNEUMONIA RECENT HOSPITALIZATION H/O COPD TREATMENT: IV CEFEPIME (ER-PRESENT) IV VANCOMYCIN (ER-PRESENT) IV LEVAQUIN (ER) IV FLUIDS (ER) BLOOD CULTURES BIPAP IMCU MONITORING (This form is maintained as a part of the permanent medical record) 2014 [employer] All Rights Reserved [email or web address] Office: [phone] [facility]ITAL[facility]
--- NOTE | 2018-03-09 15:06 | PQF ---
CLINICAL DOCUMENTATION IMPROVEMENT CLARIFICATION FORM: ICD-10 Updated PLEASE DO AN ADDENDUM TO THE PROGRESS NOTE WITH ANY DOCUMENTATION UPDATES OR ADDITIONS AND CARRY THROUGH TO DC SUMMARY. THANK YOU. DATE: 03/09/18 ATTN: DR. HOLT Please exercise your independent, professional judgment in responding to the clarification form. Clinical indicators are provided on the bottom of this form for your review Please check appropriate box(s): [ ] Empirically treating Gram Negative Pneumonia [ ] Empirically treating Anaerobic Pneumonia [ ] Pneumonia secondary to (specify organism / underlying disease) [ ] Simple Pneumonia (community acquired - nosocomial) [ ] Pneumonia of unknown etiology [ X ] Other diagnosis _Healthcare Associated Pneumonia [ ] Unable to determine In addition, please specify: Present on Admission (POA): [ X] Yes [ ] No [ ] Unable to determine For continuity of documentation, please document condition throughout progress notes and discharge summary. Thank You. CLINICAL INDICATORS - SIGNS / SYMPTOMS / LABS DX: PNEUMONIA PULSE 129 RR 40 WBC 19.3 RISKS: ADVANCED AGE H/O COPD RECENT HOSPITALIZATION FOR PNEUMONIA TREATMENT: IV CEFEPIME (ER-PRESENT) IV VANCOMYCIN (ER-PRESENT) IV LEVAQUIN (ER) IV FLUIDS (ER) BLOOD CULTURES BIPAP IMCU MONITORING (This form is maintained as a part of the permanent medical record) 2014 [employer], [address] All Rights Reserved [email or web address] Office: [phone] [facility]
--- NOTE | 2018-03-09 15:11 | PQF ---
CLINICAL DOCUMENTATION IMPROVEMENT CLARIFICATION FORM: ICD-10 Updated PLEASE DO AN ADDENDUM TO THE PROGRESS NOTE WITH ANY DOCUMENTATION UPDATES OR ADDITIONS AND CARRY THROUGH TO DC SUMMARY. THANK YOU. DATE: 03/09/18 ATTN: DR. HOLT Please exercise your independent, professional judgment in responding to the clarification form. Clinical indicators are provided on the bottom of this form for your review Please check appropriate box(s): [X ] Acute On Chronic Respiratory Failure: [ X ] with Hypoxia [ ] with Hypercapnia [ ] Chronic Respiratory Failure only [ ] with Hypoxia [ ] with Hypercapnia [ ] Other diagnosis [ ] Unable to determine In addition, please specify: Present on Admission (POA): [ X ] Yes [ ] No [ ] Unable to determine For continuity of documentation, please document condition throughout progress notes and discharge summary. Thank You. CLINICAL INDICATORS - SIGNS / SYMPTOMS / LABS PROGRESS NOTE: "ACUTE RESPIRATORY FAILURE WITH HYPOXIA- RESOLVED" "ON HOME DOSE OF 2 LTS BY NC NOW" PULSE 129 RR 40 WBC 19.3 RISKS: PNEUMONIA H/O COPD TREATMENT: IV CEFEPIME (ER-PRESENT) IV VANCOMYCIN (ER-PRESENT) IV LEVAQUIN (ER) IV FLUIDS (ER) BLOOD CULTURES BIPAP IMCU MONITORING (This form is maintained as a part of the permanent medical record) 2014 [employer]. All Rights Reserved [email or web address] Office: [phone] [email or web address]
[2018-03-09] MEDS: Mometasone/Formoterol 120 PUFF INHALER INH SCH (18:19)
[2018-03-09] MEDS: Amitriptyline HCl 25 MG TAB PO SCH (21:00)
[2018-03-09] MEDS: Spironolactone 25 MG TAB PO SCH (21:00)
[2018-03-09] MEDS: Lorazepam 2 MG/ML VIAL SLOW IVP PRN (21:52)
[2018-03-10 07:23] LABS: Vancomycin, Trough 7.1 ug/mL
[2018-03-10] MEDS: Mometasone/Formoterol 120 PUFF INHALER INH SCH ×2 (07:46→19:16)
[2018-03-10] MEDS: Vancomycin HCl 1 GM in Premix Bag 1 BAG IVPB SCH (08:44)
[2018-03-10] MEDS: Saccharomyces boulardii 250 MG CAP PO SCH (08:44)
[2018-03-10] MEDS: Enoxaparin Sodium 40 MG/0.4 ML SYRINGE SC SCH ×2 (08:45→10:44)
[2018-03-10] MEDS ORDERED: Vancomycin HCl 500 MG in Sodium Chloride 0.9% 100 ML IVPB SCH (09:00)
[2018-03-10] MEDS: Cefepime 1 GM in Sodium Chloride 0.9% 100 ML IVPB SCH ×2 (10:17→23:39)
[2018-03-10] MEDS ORDERED: LIDOCAINE HCL 4% Topical Sol (4 ML SOLN.PK.G.) FS SCH (10:45)
--- NOTE | 2018-03-10 10:53 | PRG ---
DATE OF SERVICE: 03/10/2018 SUBJECTIVE: This morning, she is better. OBJECTIVE: VITAL SIGNS: Sats are still low 97% on 3 L, temperature 99, pulse 88, and blood pressure 167/66. CHEST: Bilateral crackles, left greater than right. CARDIAC: Normal S1 and S2. No gallops. ABDOMEN: No masses. IMPRESSION: Slowly resolving left chest pneumonia. All cultures negative. PLAN: Continue antibiotics at bedside. Diagnostic bronchoscopy to be performed tomorrow. Job ID: [id number]
[2018-03-10] MEDS: Sodium Chloride 0.9% 1,000 ML IV SCH (11:21)
--- NOTE | 2018-03-10 15:32 | PDOC.PN ---
- Subjective Encounter Start Date: 03/10/18 Encounter Start Time: 12:45 Subjective: is off bipap, sitting in bed -: sob is better, no chest pain - Objective Resuscitation Status - Order Detail: 03/08/18 09:35 Resuscitation Status Routine Resuscitation Status: FULL: Full Resuscitation MAR Reviewed: Yes Vital Signs & Weight: Vital Signs (12 hours) Temp Pulse Pulse Pulse Resp BP BP 03/10/18 15:20 76 17 03/10/18 11:30 98.9 F 82 18 03/10/18 10:47 83 20 03/10/18 09:50 88 75 167/66 H 142/65 H 03/10/18 07:47 03/10/18 07:44 78 17 03/10/18 07:37 99.1 F 94 20 03/10/18 04:00 98.2 F 69 18 BP Pulse Ox Pulse Ox 03/10/18 15:20 03/10/18 11:30 145/68 H 98 03/10/18 10:47 100 03/10/18 09:50 100 03/10/18 07:47 97 03/10/18 07:44 03/10/18 07:37 146/76 H 97 03/10/18 04:00 123/58 L 99 Weight Weight 123 lb I&O: 03/09/18 03/10/18 03/11/18 06:59 06:59 06:59 Intake Total 500 1160 Output Total 910 Balance -410 1160 Result Diagrams: 03/09/18 04:21 03/09/18 04:21 Phys Exam - Physical Examination HEENT: PERRLA, moist MMs Neck: no JVD, supple Respiratory: no wheezing, no rales Cardiovascular: RRR, no significant murmur Gastrointestinal: soft, non-tender, positive bowel sounds Musculoskeletal: no edema, pulses present Neurological: non-focal, moves all 4 limbs Psychiatric: A&O x 3 Dx/Plan (1) PNA (pneumonia) Code(s): J18.9 - PNEUMONIA, UNSPECIFIED ORGANISM Status: Acute Qualifiers: Pneumonia type: due to unspecified organism Laterality: left Lung location: lower lobe of lung Qualified Code(s): J18.1 - Lobar pneumonia, unspecified organism (2) COPD (chronic obstructive pulmonary disease) Status: Chronic Qualifiers: COPD type: chronic bronchitis Chronic bronchitis type: unspecified Qualified Code(s): J42 - Unspecified chronic bronchitis (3) Demand ischemia of myocardium Code(s): I24.8 - OTHER FORMS OF ACUTE ISCHEMIC HEART DISEASE Status: Acute (4) Chronic diastolic heart failure Code(s): I50.32 - CHRONIC DIASTOLIC (CONGESTIVE) HEART FAILURE Status: Chronic (5) Acute respiratory failure with hypoxia Code(s): J96.01 - ACUTE RESPIRATORY FAILURE WITH HYPOXIA Status: Resolved Comment: on home dose of 2 lts by PR now - Plan for bronch per pulm adv -: is on vanc and cefepime, solumedrol, nebs -: continue spironolactone -: family at bedside given updates -: to amb as tolerated, may tx to med floor if ok with pulm * . Review of Systems - Medications/Allergies Allergies/Adverse Reactions: Allergies Allergy/AdvReac Type Severity Reaction Status Date / Time Penicillins Allergy Verified 02/25/18 15:49 Medications: Current Medications Acetaminophen (Tylenol) 650 mg PO Q4H PRN PRN Reason: Headache/Fever/Mild Pain (1-3) Albuterol/Ipratropium (Duoneb) 3 ml NEB [id number] [facility] Last Admin: 03/10/18 15:20 Dose: 3 ml Albuterol/Ipratropium (Duoneb) 3 ml NEB [facility] Stop: 03/10/18 23:59 Amitriptyline HCl (Elavil) 50 mg PO HS [facility] Last Admin: 03/09/18 21:00 Dose: 50 mg Enoxaparin Sodium (Lovenox) 40 mg SC 0900 [facility] Last Admin: 03/10/18 10:44 Dose: 40 mg Hydralazine HCl (Apresoline) 10 mg SLOW IVP Q4H PRN PRN Reason: SBP > 180 and HR < 70 Cefepime HCl 1 gm/ Sodium (Chloride) 100 mls @ 200 mls/hr IVPB 1100,2300 [facility] Last Admin: 03/10/18 10:17 Dose: 100 mls Vancomycin HCl 1.5 gm/ Sodium (Chloride) 300 mls @ 200 mls/hr IVPB 0900 [facility] Sodium Chloride (Normal Saline 0.9%) 1,000 mls @ 50 mls/hr IV .Q20H [facility] Last Admin: 03/10/18 11:21 Dose: 1,000 mls Lidocaine HCl (Lidocaine Hcl 4% Topical Deepthi) 4 ml FS [facility] Stop: 03/10/18 23:59 Lorazepam (Ativan) 1 mg SLOW IVP Q6H PRN PRN Reason: AGITATION Last Admin: 03/09/18 21:52 Dose: 1 mg Methylprednisolone Sodium Succinate (Solu-Medrol) 40 mg IVP 0300,0900,1500, 2100 [facility] Last Admin: 03/10/18 15:21 Dose: 40 mg Miscellaneous Medication (Pharmacy To Dose) 0 each IVPB DAILYPRN PRN PRN Reason: LABS Mometasone Furoate/Formoterol Fumar (Dulera 200 Mcg/5 Mcg Inhaler) 2 puff INH BID-RT [facility] Last Admin: 03/10/18 07:46 Dose: 2 puff Pantoprazole Sodium (Protonix) 40 mg PO DAILY [facility] Last Admin: 03/10/18 08:44 Dose: 40 mg Saccharomyces Boulardii (Florastor) 250 mg PO DAILY [facility] Last Admin: 03/10/18 08:44 Dose: 250 mg Sertraline HCl (Zoloft) 50 mg PO HS [facility] Last Admin: 03/09/18 21:00 Dose: 50 mg Sodium Chloride (Flush - Normal Saline) 10 ml IVF Q12HR [facility] Last Admin: 03/10/18 08:45 Dose: 10 ml Sodium Chloride (Flush - Normal Saline) 10 ml IVF PRN PRN PRN Reason: Saline Flush Last Admin: 03/10/18 03:41 Dose: 10 ml Spironolactone (Aldactone) 25 mg PO HS [facility] Last Admin: 03/09/18 21:00 Dose: 25 mg
[2018-03-10] MEDS: Spironolactone 25 MG TAB PO SCH (21:29)
[2018-03-10] MEDS: Amitriptyline HCl 25 MG TAB PO SCH (21:29)
[2018-03-10] MEDS: Lorazepam 2 MG/ML VIAL SLOW IVP PRN (21:40)
[2018-03-11] MEDS: Mometasone/Formoterol 120 PUFF INHALER INH SCH ×2 (06:05→18:55)
[2018-03-11] MEDS ORDERED: Lidocaine 1% (PF) 30 ML VIAL ONE (07:21)
[2018-03-11] MEDS ORDERED: Morphine 4 MG/ML VIAL ONE (07:46)
[2018-03-11] MEDS: Sodium Chloride 0.9% 1,000 ML IV SCH (07:56)
[2018-03-11] MEDS ORDERED: Morphine 4 MG/ML VIAL SLOW IVP SCH (08:15)
[2018-03-11] MEDS ORDERED: Vancomycin HCl 1.5 GM in Sodium Chloride 0.9% 250 ML 300 ML IVPB SCH (09:00)
--- NOTE | 2018-03-11 09:33 | OP ---
DATE OF PROCEDURE: 03/11/2018 PROCEDURE: Diagnostic bronchoscopy. INDICATIONS: Slowly resolving left chest pneumonia, rule out TB, fungus, malignancy. POSTBRONCHOSCOPY DIAGNOSIS: Slowly resolving left chest pneumonia, rule out TB, fungus, malignancy. DESCRIPTION OF PROCEDURE: After informed consent, the patient received DuoNeb with 4 mL of 4% lidocaine. She has been monitored on the telemetry unit. She was given a 4 mg of Versed. The flexible Olympus bronchoscope was then passed using the bite block. Vocal cords were visualized, which were normal. Entering the trachea, there was blood seen arising out of the left lung. Merlene was sharp. Entering the left lung, left upper lung was normal. No endobronchial obstruction was seen. Blood was arising from the basilar segments. Area of the left lower lobe bronchus, there was some mild erythema, but no obvious endobronchial disease was seen. This area was lavaged with normal saline completely clear. Once again, no further endobronchial disease or bleeding was seen. The right lung was inspected thereafter, right upper, right middle lobe. No endobronchial obstruction, blood, or pus was seen. The patient tolerated the procedure well. The washings will be sent for Gram stain, C and S, AFB smear and culture, fungal smear and culture, routine Gram stain, C and S. Job ID: [id number]
[2018-03-11] MEDS: Enoxaparin Sodium 40 MG/0.4 ML SYRINGE SC SCH (09:38)
[2018-03-11] MEDS: Saccharomyces boulardii 250 MG CAP PO SCH (09:38)
[2018-03-11] MEDS: Lorazepam 2 MG/ML VIAL SLOW IVP PRN (09:39)
--- NOTE | 2018-03-11 10:26 | PRG ---
DATE OF SERVICE: 03/11/2018 SUBJECTIVE: This morning, she underwent a bronchoscopy and is still coughing some blood post bronchoscopy an hour later on. OBJECTIVE: VITAL SIGNS: Sats are 95% on 4 L, respiratory rate 20, temperature 98, and blood pressure 130/68. CHEST: Decreased breath sounds. No wheezing on the right side. On the left side, extensive rhonchi and crackles. CARDIAC: Normal S1 and S2. No gallops. ABDOMEN: No masses. IMPRESSION: Left-sided pneumonia and hemoptysis. No evidence of endobronchial disease. PLAN: Continue antibiotics. Await results of the bronch washings. Supportive care PT. Job ID: [id number]
--- NOTE | 2018-03-11 12:26 | PDOC.PN ---
- Subjective Encounter Start Date: 03/11/18 Encounter Start Time: 08:15 Subjective: had bronchoscopy just now -: cough+, no sob - Objective Resuscitation Status - Order Detail: 03/08/18 09:35 Resuscitation Status Routine Resuscitation Status: FULL: Full Resuscitation MAR Reviewed: Yes Vital Signs & Weight: Vital Signs (12 hours) Temp Pulse Resp BP Pulse Ox 03/11/18 11:02 73 16 99 03/11/18 07:57 98.6 F 83 20 136/68 94 L 03/11/18 06:05 83 16 96 03/11/18 04:00 97.6 F 77 18 126/59 L 100 03/11/18 02:24 71 14 100 Weight Weight 124 lb 4 oz I&O: 03/10/18 03/11/18 03/12/18 06:59 06:59 06:59 Intake Total 1160 1220 Balance 1160 1220 Result Diagrams: 03/09/18 04:21 03/09/18 04:21 Phys Exam - Physical Examination HEENT: PERRLA, moist MMs Neck: no JVD, supple Respiratory: no wheezing, no rales rhonchi+ Cardiovascular: RRR, no significant murmur Gastrointestinal: soft, non-tender, positive bowel sounds Musculoskeletal: no edema, pulses present Neurological: non-focal, moves all 4 limbs Psychiatric: normal affect, A&O x 3 Dx/Plan (1) PNA (pneumonia) Code(s): J18.9 - PNEUMONIA, UNSPECIFIED ORGANISM Status: Acute Qualifiers: Pneumonia type: due to unspecified organism Laterality: left Lung location: lower lobe of lung Qualified Code(s): J18.1 - Lobar pneumonia, unspecified organism (2) COPD (chronic obstructive pulmonary disease) Status: Chronic Qualifiers: COPD type: chronic bronchitis Chronic bronchitis type: unspecified Qualified Code(s): J42 - Unspecified chronic bronchitis (3) Demand ischemia of myocardium Code(s): I24.8 - OTHER FORMS OF ACUTE ISCHEMIC HEART DISEASE Status: Acute (4) Chronic diastolic heart failure Code(s): I50.32 - CHRONIC DIASTOLIC (CONGESTIVE) HEART FAILURE Status: Chronic (5) Acute respiratory failure with hypoxia Code(s): J96.01 - ACUTE RESPIRATORY FAILURE WITH HYPOXIA Status: Resolved Comment: on home dose of 2 lts by VT now - Plan hemostable -: on nasal canula oxygen -: had bronch this am, await results -: continue steroids, vanc, cefepime, nebs -: to amb as tolerated later today * . Review of Systems - Medications/Allergies Allergies/Adverse Reactions: Allergies Allergy/AdvReac Type Severity Reaction Status Date / Time Penicillins Allergy Verified 02/25/18 15:49 Medications: Current Medications Acetaminophen (Tylenol) 650 mg PO Q4H PRN PRN Reason: Headache/Fever/Mild Pain (1-3) Albuterol/Ipratropium (Duoneb) 3 ml NEB [id number] [facility] Last Admin: 03/11/18 11:02 Dose: 3 ml Amitriptyline HCl (Elavil) 50 mg PO HS [facility] Last Admin: 03/10/18 21:29 Dose: 50 mg Enoxaparin Sodium (Lovenox) 40 mg SC 0900 [facility] Last Admin: 03/11/18 09:38 Dose: 40 mg Hydralazine HCl (Apresoline) 10 mg SLOW IVP Q4H PRN PRN Reason: SBP > 180 and HR < 70 Cefepime HCl 1 gm/ Sodium (Chloride) 100 mls @ 200 mls/hr IVPB 1100,2300 [facility] Last Admin: 03/10/18 23:39 Dose: 100 mls Sodium Chloride (Normal Saline 0.9%) 1,000 mls @ 50 mls/hr IV .Q20H [facility] Last Admin: 03/11/18 07:56 Dose: 1,000 mls Linezolid 600 mg/ Device 300 mls @ 150 mls/hr IVPB Q12HR [facility] Lorazepam (Ativan) 1 mg SLOW IVP Q6H PRN PRN Reason: AGITATION Last Admin: 03/11/18 09:39 Dose: 1 mg Methylprednisolone Sodium Succinate (Solu-Medrol) 40 mg IVP 0300,0900,1500, 2100 [facility] Last Admin: 03/11/18 09:38 Dose: 40 mg Miscellaneous Medication (Pharmacy To Dose) 0 each IVPB DAILYPRN PRN PRN Reason: LABS Mometasone Furoate/Formoterol Fumar (Dulera 200 Mcg/5 Mcg Inhaler) 2 puff INH BID-RT [facility] Last Admin: 03/11/18 06:05 Dose: 2 puff Pantoprazole Sodium (Protonix) 40 mg PO DAILY [facility] Last Admin: 03/11/18 09:38 Dose: 40 mg Saccharomyces Boulardii (Florastor) 250 mg PO DAILY [facility] Last Admin: 03/11/18 09:38 Dose: 250 mg Sertraline HCl (Zoloft) 50 mg PO [facility] Last Admin: 03/10/18 21:30 Dose: 50 mg Sodium Chloride (Flush - Normal Saline) 10 ml IVF Q12HR [facility] Last Admin: 03/11/18 09:39 Dose: 10 ml Sodium Chloride (Flush - Normal Saline) 10 ml IVF PRN PRN PRN Reason: Saline Flush Last Admin: 03/11/18 03:32 Dose: 10 ml Spironolactone (Aldactone) 25 mg PO [facility] Last Admin: 03/10/18 21:29 Dose: 25 mg
[2018-03-11] MEDS: Cefepime 1 GM in Sodium Chloride 0.9% 100 ML IVPB SCH (12:33)
[2018-03-11] MEDS: Amitriptyline HCl 25 MG TAB PO SCH (20:18)
[2018-03-11] MEDS: Linezolid 600 MG in Premix Bag 1 BAG IVPB SCH (20:18)
[2018-03-11] MEDS: Spironolactone 25 MG TAB PO SCH (20:18)
[2018-03-11] MEDS: guaiFENesin ER 600 MG TAB PO SCH (20:18)
[2018-03-12] MEDS: Lorazepam 2 MG/ML VIAL SLOW IVP PRN (00:34)
[2018-03-12] MEDS: Cefepime 1 GM in Sodium Chloride 0.9% 100 ML IVPB SCH ×3 (03:22→13:07)
[2018-03-12] MEDS: Mometasone/Formoterol 120 PUFF INHALER INH SCH ×2 (08:29→18:29)
[2018-03-12] MEDS: Sodium Chloride 0.9% 1,000 ML IV SCH ×2 (09:24→21:52)
[2018-03-12] MEDS: Saccharomyces boulardii 250 MG CAP PO SCH (09:28)
[2018-03-12] MEDS: Enoxaparin Sodium 40 MG/0.4 ML SYRINGE SC SCH (09:28)
[2018-03-12] MEDS: guaiFENesin ER 600 MG TAB PO SCH ×2 (09:28→21:48)
[2018-03-12] MEDS: Linezolid 600 MG in Premix Bag 1 BAG IVPB SCH ×2 (09:34→21:50)
--- NOTE | 2018-03-12 10:01 | PRG ---
DATE OF SERVICE: 03/12/2018 SUBJECTIVE: This morning, she looks better, less short of breath, less cough. OBJECTIVE: VITAL SIGNS: Temperature 98, pulse 80, saturations are 97% on 3 L, respiratory rate 18, and blood pressure 140/67. CHEST: Reveal crackles in left lung. CARDIAC: Normal S1 and S2. No gallops. ABDOMEN: No masses. Bronchial washings show Gram-positive cocci and cultures may be Staph, though still awaiting final identification. IMPRESSION: 1. Chronic obstructive pulmonary disease. 2. Left chest pneumonia. 3. Severe deconditioning. PLAN: Continue Maxipime and Zyvox. She will be transferred out of the MICU to a non-monitored bed. Job ID: [id number]
--- NOTE | 2018-03-12 12:27 | PDOC.PN ---
- Subjective Encounter Start Date: 03/12/18 Encounter Start Time: 11:45 Subjective: breathing better -: daughter at bedside - Objective Resuscitation Status - Order Detail: 03/08/18 09:35 Resuscitation Status Routine Resuscitation Status: FULL: Full Resuscitation MAR Reviewed: Yes Vital Signs & Weight: Vital Signs (12 hours) Temp Pulse Resp BP Pulse Ox 03/12/18 11:15 97.7 F 79 24 H 149/64 H 100 03/12/18 11:12 79 18 99 03/12/18 08:29 97 03/12/18 08:27 83 18 99 03/12/18 08:00 98 03/12/18 07:28 98.0 F 72 26 H 149/67 H 100 03/12/18 03:40 97.6 F 73 20 129/61 98 03/12/18 02:31 73 16 94 L Weight Weight 125 lb 1 oz I&O: 03/11/18 03/12/18 03/13/18 06:59 06:59 06:59 Intake Total 1220 3145 Balance 1220 3145 Result Diagrams: 03/09/18 04:21 03/09/18 04:21 Phys Exam - Physical Examination HEENT: PERRLA, moist MMs Neck: no JVD, supple Respiratory: no wheezing, no rales rhonchi+ Cardiovascular: RRR, no significant murmur Gastrointestinal: soft, non-tender, positive bowel sounds Musculoskeletal: no edema, pulses present Neurological: non-focal, moves all 4 limbs Psychiatric: normal affect, A&O x 3 Dx/Plan (1) PNA (pneumonia) Code(s): J18.9 - PNEUMONIA, UNSPECIFIED ORGANISM Status: Acute Qualifiers: Pneumonia type: due to unspecified organism Laterality: left Lung location: lower lobe of lung Qualified Code(s): J18.1 - Lobar pneumonia, unspecified organism (2) COPD (chronic obstructive pulmonary disease) Status: Chronic Qualifiers: COPD type: chronic bronchitis Chronic bronchitis type: unspecified Qualified Code(s): J42 - Unspecified chronic bronchitis (3) Demand ischemia of myocardium Code(s): I24.8 - OTHER FORMS OF ACUTE ISCHEMIC HEART DISEASE Status: Acute (4) Chronic diastolic heart failure Code(s): I50.32 - CHRONIC DIASTOLIC (CONGESTIVE) HEART FAILURE Status: Chronic (5) Acute respiratory failure with hypoxia Code(s): J96.01 - ACUTE RESPIRATORY FAILURE WITH HYPOXIA Status: Resolved Comment: on home dose of 2 lts by NC now - Plan is on zyvox and cefepime -: nebs, steroids -: PT to mobilize as tolerated with oxygen -: d/w daughter and patient at bedside -: july to med floor * . Review of Systems - Medications/Allergies Allergies/Adverse Reactions: Allergies Allergy/AdvReac Type Severity Reaction Status Date / Time Penicillins Allergy Verified 02/25/18 15:49 Medications: Current Medications Acetaminophen (Tylenol) 650 mg PO Q4H PRN PRN Reason: Headache/Fever/Mild Pain (1-3) Albuterol/Ipratropium (Duoneb) 3 ml NEB [id number] [facility] Last Admin: 03/12/18 11:12 Dose: 3 ml Alprazolam (Xanax) 0.25 mg PO BIDPRN PRN PRN Reason: Anxiety Amitriptyline HCl (Elavil) 50 mg PO HS [facility] Last Admin: 03/11/18 20:18 Dose: 50 mg Enoxaparin Sodium (Lovenox) 40 mg SC 0900 [facility] Last Admin: 03/12/18 09:28 Dose: 40 mg Guaifenesin (Mucinex) 600 mg PO Q12HR [facility] Last Admin: 03/12/18 09:28 Dose: 600 mg Hydralazine HCl (Apresoline) 10 mg SLOW IVP Q4H PRN PRN Reason: SBP > 180 and HR < 70 Sodium Chloride (Normal Saline 0.9%) 1,000 mls @ 50 mls/hr IV .Q20H [facility] Last Admin: 03/12/18 09:24 Dose: 1,000 mls Linezolid 600 mg/ Device 300 mls @ 150 mls/hr IVPB Q12HR [facility] Last Admin: 03/12/18 09:34 Dose: 300 mls Cefepime HCl 1 gm/ Sodium (Chloride) 100 mls @ 200 mls/hr IVPB 0200,1400 [facility] Last Admin: 03/12/18 04:03 Dose: 100 mls Mometasone Furoate/Formoterol Fumar (Dulera 200 Mcg/5 Mcg Inhaler) 2 puff INH BID-RT [facility] Last Admin: 03/12/18 08:29 Dose: 2 puff Pantoprazole Sodium (Protonix) 40 mg PO DAILY [facility] Last Admin: 03/12/18 09:28 Dose: 40 mg Prednisone (Prednisone) 20 mg PO QA-[facility] Saccharomyces Boulardii (Florastor) 250 mg PO DAILY [facility] Last Admin: 03/12/18 09:28 Dose: 250 mg Sertraline HCl (Zoloft) 50 mg PO [facility] Last Admin: 03/11/18 20:17 Dose: 50 mg Sodium Chloride (Flush - Normal Saline) 10 ml IVF Q12HR [facility] Last Admin: 03/12/18 09:28 Dose: 10 ml Sodium Chloride (Flush - Normal Saline) 10 ml IVF PRN PRN PRN Reason: Saline Flush Last Admin: 03/12/18 02:39 Dose: 10 ml Spironolactone (Aldactone) 25 mg PO HS [facility] Last Admin: 03/11/18 20:18 Dose: 25 mg
[2018-03-12] MEDS: Spironolactone 25 MG TAB PO SCH (21:48)
[2018-03-12] MEDS: ALPRAZolam 0.25 MG TAB PO PRN (21:48)
[2018-03-12] MEDS: Amitriptyline HCl 25 MG TAB PO SCH (21:48)
[2018-03-13] MEDS: Cefepime 1 GM in Sodium Chloride 0.9% 100 ML IVPB SCH (02:55)
[2018-03-13] MEDS: Mometasone/Formoterol 120 PUFF INHALER INH SCH ×2 (06:43→19:09)
[2018-03-13] MEDS: ALPRAZolam 0.25 MG TAB PO PRN ×2 (06:52→21:02)
[2018-03-13] MEDS ORDERED: Fluconazole 100 MG TAB PO SCH (07:39)
[2018-03-13 08:20] LABS: #Eosinphils 0.1 thou/uL (0.0-0.7); #Lymphocytes 0.8 thou/uL (1.20-3.40); #Monocytes 0.5 thou/uL (0.11-0.59); #Neutrophils 12.1 thou/uL (1.40-6.50); %Eosinophils 0.9 % (0.0-10.0); %Lymphocytes 5.8 % (21.0-51.0); %Monocytes 3.4 % (0.0-10.0); Hemoglobin 12.3 g/dL (12.0-16.0); Mean Corpuscular HGB CONC 32.6 g/dL (32.0-36.0); Mean Corpuscular Hemoglobin 31.1 pg (27.0-31.0); Mean Corpuscular Volume 95.5 fL (78.0-98.0); Mean Platelet Volume 6.4 fL (7.4-10.4); Platelet Count 245 thou/uL (130-400); RBC Distribution Width 13.7 % (11.5-14.5); Red Blood Cell (RBC) Count 3.94 mill/uL (4.20-5.40); White Blood Cell (WBC) Count 13.4 thou/uL (4.8-10.8)
[2018-03-13 08:39] LABS: Anion Gap 12 mmol/L (10-20); BUN (Urea Nitrogen) 13 mg/dL (9.8-20.1); Calc. Creatinine Clearance 68 mL/min (70-130); Calcium 8.5 mg/dL (7.8-10.44); Carbon Dioxide 29 mmol/L (23-31); Chloride 101 mmol/L (98-107); Estimated GFR-MDRD Greater than 90; Glucose 71 mg/dL (83-110); Potassium 3.4 mmol/L (3.5-5.1); Sodium 139 mmol/L (136-145)
[2018-03-13] MEDS: predniSONE 20 MG TAB PO SCH (08:41)
[2018-03-13] MEDS: Enoxaparin Sodium 40 MG/0.4 ML SYRINGE SC SCH (08:41)
[2018-03-13] MEDS: guaiFENesin ER 600 MG TAB PO SCH ×2 (08:41→21:03)
[2018-03-13] MEDS: Linezolid 600 MG in Premix Bag 1 BAG IVPB SCH (08:41)
[2018-03-13] MEDS: Saccharomyces boulardii 250 MG CAP PO SCH (08:42)
--- NOTE | 2018-03-13 08:44 | RAD ---
SINGLE VIEW OF THE CHEST: COMPARISON: 03/09/2018. HISTORY: Pneumonia. FINDINGS: A single view of the chest shows a cardiomediastinal silhouette which is upper limits of normal in si ze with atherosclerotic calcifications in the aorta. Increased interstitial lung markings are presen t. There is improvement in the airspace opacity in the left lung. IMPRESSION: Improving left lower lobe pneumonia. POS: TPC
--- NOTE | 2018-03-13 11:12 | PRG ---
DATE OF SERVICE: 03/13/2018 SUBJECTIVE: Gregoria Guzman this morning is better. She is still coughing, bloody secretions. OBJECTIVE: VITAL SIGNS: Saturations 95% on 2 L, respiratory rate 20, temperature 97, pulse 88, and blood pressure 127/60. CHEST: Extensive rhonchi and crackles, left greater than right. CARDIAC: Normal S1 and S2. No gallops. ABDOMEN: No masses. LABORATORY DATA: White count 12,000, H and H are 12 and 37. Lytes are normal. X-ray shows slight improvement in the left-sided infiltrate, left-sided pneumonia, bronchiectasis, bronchitis, chronic obstructive pulmonary disease, severe deconditioning. PLAN: I am switching over to oral antibiotics. Continue PT supportive care. Job ID: [id number]
--- NOTE | 2018-03-13 12:40 | PDOC.PN ---
- Subjective Encounter Start Date: 03/13/18 Encounter Start Time: 10:40 Subjective: is better, still has cough -: amb well with PT yesterday -: daughter at bedside - Objective Resuscitation Status - Order Detail: 03/08/18 09:35 Resuscitation Status Routine Resuscitation Status: FULL: Full Resuscitation MAR Reviewed: Yes Vital Signs & Weight: Vital Signs (12 hours) Temp Pulse Resp BP Pulse Ox 03/13/18 11:30 90 18 100 03/13/18 08:00 97.7 F 88 20 127/63 95 03/13/18 06:43 99 21 H 95 03/13/18 06:35 97 21 H 96 03/13/18 03:59 98.2 F 78 14 137/64 97 03/13/18 02:31 78 12 96 Weight Weight 128 lb 3.2 oz I&O: 03/12/18 03/13/18 03/14/18 06:59 06:59 06:59 Intake Total 3145 3728 Balance 3145 3728 Result Diagrams: 03/13/18 07:49 03/13/18 07:49 Phys Exam - Physical Examination HEENT: PERRLA, moist MMs Neck: no JVD, supple Respiratory: no wheezing, no rales Cardiovascular: RRR, no significant murmur Gastrointestinal: soft, non-tender, positive bowel sounds Musculoskeletal: no edema, pulses present Neurological: non-focal, moves all 4 limbs Psychiatric: normal affect, A&O x 3 Dx/Plan (1) PNA (pneumonia) Code(s): J18.9 - PNEUMONIA, UNSPECIFIED ORGANISM Status: Acute Qualifiers: Pneumonia type: due to unspecified organism Laterality: left Lung location: lower lobe of lung Qualified Code(s): J18.1 - Lobar pneumonia, unspecified organism (2) COPD (chronic obstructive pulmonary disease) Status: Chronic Qualifiers: COPD type: chronic bronchitis Chronic bronchitis type: unspecified Qualified Code(s): J42 - Unspecified chronic bronchitis (3) Demand ischemia of myocardium Code(s): I24.8 - OTHER FORMS OF ACUTE ISCHEMIC HEART DISEASE Status: Acute (4) Chronic diastolic heart failure Code(s): I50.32 - CHRONIC DIASTOLIC (CONGESTIVE) HEART FAILURE Status: Chronic (5) Acute respiratory failure with hypoxia Code(s): J96.01 - ACUTE RESPIRATORY FAILURE WITH HYPOXIA Status: Resolved Comment: on home dose of 2 lts by [place] now - Plan is on doxy and levaquin -: oral prednisone, fluconazole -: to amb as tolerated -: swing bed when cleared by pulm -: xanax, zoloft, elavil, spironolactone to be continued * . Review of Systems - Medications/Allergies Allergies/Adverse Reactions: Allergies Allergy/AdvReac Type Severity Reaction Status Date / Time Penicillins Allergy Verified 02/25/18 15:49 Medications: Current Medications Acetaminophen (Tylenol) 650 mg PO Q4H PRN PRN Reason: Headache/Fever/Mild Pain (1-3) Albuterol/Ipratropium (Duoneb) 3 ml NEB [id number] [facility] Last Admin: 03/13/18 11:30 Dose: 3 ml Alprazolam (Xanax) 0.25 mg PO BIDPRN PRN PRN Reason: Anxiety Last Admin: 03/13/18 06:52 Dose: 0.25 mg Amitriptyline HCl (Elavil) 50 mg PO HS [facility] Last Admin: 03/12/18 21:48 Dose: 50 mg Doxycycline Hyclate (Vibramycin) 100 mg PO BID [facility] Enoxaparin Sodium (Lovenox) 40 mg SC 0900 [facility] Last Admin: 03/13/18 08:41 Dose: 40 mg Fluconazole (Diflucan) 100 mg PO DAILY [facility] Guaifenesin (Mucinex) 600 mg PO Q12HR [facility] Last Admin: 03/13/18 08:41 Dose: 600 mg Hydralazine HCl (Apresoline) 10 mg SLOW IVP Q4H PRN PRN Reason: SBP > 180 and HR < 70 Sodium Chloride (Normal Saline 0.9%) 1,000 mls @ 50 mls/hr IV .Q20H [facility] Last Admin: 03/12/18 21:52 Dose: 1,000 mls Levofloxacin (Levaquin) 500 mg PO 0600 [facility] Mometasone Furoate/Formoterol Fumar (Dulera 200 Mcg/5 Mcg Inhaler) 2 puff INH BID-RT [facility] Last Admin: 03/13/18 06:43 Dose: 2 puff Pantoprazole Sodium (Protonix) 40 mg PO DAILY [facility] Last Admin: 03/13/18 08:42 Dose: 40 mg Prednisone (Prednisone) 20 mg PO QAM-WM [facility] Last Admin: 03/13/18 08:41 Dose: 20 mg Saccharomyces Boulardii (Florastor) 250 mg PO DAILY [facility] Last Admin: 03/13/18 08:42 Dose: 250 mg Sertraline HCl (Zoloft) 50 mg PO [facility] Last Admin: 03/12/18 21:49 Dose: 50 mg Sodium Chloride (Flush - Normal Saline) 10 ml IVF Q12HR [facility] Last Admin: 03/13/18 09:26 Dose: Not Given Sodium Chloride (Flush - Normal Saline) 10 ml IVF PRN PRN PRN Reason: Saline Flush Last Admin: 03/12/18 02:39 Dose: 10 ml Spironolactone (Aldactone) 25 mg PO [facility] Last Admin: 03/12/18 21:48 Dose: 25 mg
[2018-03-13] MEDS: Doxycycline 100 MG CAP PO SCH (21:01)
[2018-03-13] MEDS: Spironolactone 25 MG TAB PO SCH (21:02)
[2018-03-13] MEDS: Amitriptyline HCl 25 MG TAB PO SCH (21:03)
[2018-03-13] MEDS: Sodium Chloride 0.9% 1,000 ML IV SCH (21:03)
[2018-03-14] MEDS: Saccharomyces boulardii 250 MG CAP PO SCH (08:07)
[2018-03-14] MEDS: Fluconazole 100 MG TAB PO SCH (08:07)
[2018-03-14] MEDS: predniSONE 20 MG TAB PO SCH (08:07)
[2018-03-14] MEDS: Doxycycline 100 MG CAP PO SCH ×2 (08:07→21:11)
[2018-03-14] MEDS: Enoxaparin Sodium 40 MG/0.4 ML SYRINGE SC SCH (08:07)
[2018-03-14] MEDS: guaiFENesin ER 600 MG TAB PO SCH ×2 (08:08→20:55)
[2018-03-14] MEDS: Mometasone/Formoterol 120 PUFF INHALER INH SCH ×2 (08:39→19:03)
--- NOTE | 2018-03-14 10:47 | PRG ---
DATE OF SERVICE: 03/14/2018 SUBJECTIVE: This morning; awake, alert, and responsive. She is better, though she is still hypoxic. OBJECTIVE: VITAL SIGNS: Saturations are 90% on 3 L, temperature 98, pulse 72, and blood pressure 138/58. CHEST: Extensive rhonchi and crackle, left lung. CARDIAC: Normal S1 and S2. No gallops. ABDOMEN: No masses. ASSESSMENT: Left-sided pneumonia, bronchiectasis, and slowly resolving respiratory failure. PLAN: Continue PT and p.o. antibiotics. She will be transferred out of the MICU. Job ID: [id number]
--- NOTE | 2018-03-14 14:29 | PDOC.PN ---
- Subjective Encounter Start Date: 03/14/18 Encounter Start Time: 07:20 Subjective: breathing better -: no new symptoms - Objective Resuscitation Status - Order Detail: 03/08/18 09:35 Resuscitation Status Routine Resuscitation Status: FULL: Full Resuscitation MAR Reviewed: Yes Vital Signs & Weight: Vital Signs (12 hours) Temp Pulse Resp BP Pulse Ox 03/14/18 12:19 79 16 03/14/18 10:47 98.0 F 96 18 122/44 L 93 L 03/14/18 08:39 84 20 03/14/18 08:27 90 L 03/14/18 08:24 84 20 03/14/18 08:00 97 03/14/18 07:11 98.9 F 72 20 136/58 L 97 03/14/18 04:00 97.3 F L 74 18 116/53 L 95 03/14/18 02:49 72 16 97 Weight Weight 123 lb 11.2 oz I&O: 03/13/18 03/14/18 03/15/18 06:59 06:59 06:59 Intake Total 3728 2664 Balance 3728 2664 Result Diagrams: 03/13/18 07:49 03/13/18 07:49 Phys Exam - Physical Examination HEENT: PERRLA, moist MMs Neck: no JVD, supple Respiratory: no wheezing, no rales rhonchi+ Cardiovascular: RRR, no significant murmur Gastrointestinal: soft, non-tender, positive bowel sounds Musculoskeletal: no edema, pulses present Neurological: non-focal, moves all 4 limbs Psychiatric: normal affect, A&O x 3 Dx/Plan (1) PNA (pneumonia) Code(s): J18.9 - PNEUMONIA, UNSPECIFIED ORGANISM Status: Acute Qualifiers: Pneumonia type: due to unspecified organism Laterality: left Lung location: lower lobe of lung Qualified Code(s): J18.1 - Lobar pneumonia, unspecified organism (2) COPD (chronic obstructive pulmonary disease) Status: Chronic Qualifiers: COPD type: chronic bronchitis Chronic bronchitis type: unspecified Qualified Code(s): J42 - Unspecified chronic bronchitis (3) Demand ischemia of myocardium Code(s): I24.8 - OTHER FORMS OF ACUTE ISCHEMIC HEART DISEASE Status: Acute (4) Chronic diastolic heart failure Code(s): I50.32 - CHRONIC DIASTOLIC (CONGESTIVE) HEART FAILURE Status: Chronic (5) Acute respiratory failure with hypoxia Code(s): J96.01 - ACUTE RESPIRATORY FAILURE WITH HYPOXIA Status: Resolved Comment: on home dose of 2 lts by [place] now - Plan hemostable -: awaiting bed on med floor -: continue doxy, levaquin and diflucan -: prednisone, nebs -: to amb as tolerated, will dc iv fluids * . Review of Systems - Medications/Allergies Allergies/Adverse Reactions: Allergies Allergy/AdvReac Type Severity Reaction Status Date / Time Penicillins Allergy Verified 02/25/18 15:49 Medications: Current Medications Acetaminophen (Tylenol) 650 mg PO Q4H PRN PRN Reason: Headache/Fever/Mild Pain (1-3) Albuterol/Ipratropium (Duoneb) 3 ml NEB [id number] [facility] Last Admin: 03/14/18 12:19 Dose: 3 ml Alprazolam (Xanax) 0.25 mg PO BIDPRN PRN PRN Reason: Anxiety Last Admin: 03/13/18 21:02 Dose: 0.25 mg Amitriptyline HCl (Elavil) 50 mg PO HS [facility] Last Admin: 03/13/18 21:03 Dose: 50 mg Doxycycline Hyclate (Vibramycin) 100 mg PO BID [facility] Last Admin: 03/14/18 08:07 Dose: 100 mg Enoxaparin Sodium (Lovenox) 40 mg SC 0900 [facility] Last Admin: 03/14/18 08:07 Dose: 40 mg Fluconazole (Diflucan) 100 mg PO DAILY [facility] Last Admin: 03/14/18 08:07 Dose: 100 mg Guaifenesin (Mucinex) 600 mg PO Q12HR [facility] Last Admin: 03/14/18 08:08 Dose: 600 mg Hydralazine HCl (Apresoline) 10 mg SLOW IVP Q4H PRN PRN Reason: SBP > 180 and HR < 70 Levofloxacin (Levaquin) 500 mg PO 0600 [facility] Last Admin: 03/14/18 05:18 Dose: 500 mg Mometasone Furoate/Formoterol Fumar (Dulera 200 Mcg/5 Mcg Inhaler) 2 puff INH BID-RT [facility] Last Admin: 03/14/18 08:39 Dose: 2 puff Pantoprazole Sodium (Protonix) 40 mg PO DAILY [facility] Last Admin: 03/14/18 08:07 Dose: 40 mg Prednisone (Prednisone) 20 mg PO QAM-WM [facility] Last Admin: 03/14/18 08:07 Dose: 20 mg Saccharomyces Boulardii (Florastor) 250 mg PO DAILY [facility] Last Admin: 03/14/18 08:07 Dose: 250 mg Sertraline HCl (Zoloft) 50 mg PO [facility] Last Admin: 03/13/18 21:03 Dose: 50 mg Sodium Chloride (Flush - Normal Saline) 10 ml IVF Q12HR [facility] Last Admin: 03/14/18 08:08 Dose: 10 ml Sodium Chloride (Flush - Normal Saline) 10 ml IVF PRN PRN PRN Reason: Saline Flush Last Admin: 03/12/18 02:39 Dose: 10 ml Spironolactone (Aldactone) 25 mg PO [facility] Last Admin: 03/13/18 21:02 Dose: 25 mg
[2018-03-14 16:10] LABS: Fungus Stain Final report (.)
[2018-03-14] MEDS: Amitriptyline HCl 25 MG TAB PO SCH (20:55)
[2018-03-14] MEDS: Spironolactone 25 MG TAB PO SCH (20:56)
[2018-03-14] MEDS: ALPRAZolam 0.25 MG TAB PO PRN (21:11)
--- NOTE | 2018-03-14 21:59 | EKG ---
Test Reason : SOB Blood Pressure : / mmHG Vent. Rate : 123 BPM Atrial Rate : 123 BPM P-R Int : 128 ms QRS Dur : 070 ms QT Int : 300 ms P-R-T Axes : 071 069 075 degrees QTc Int : 429 ms Sinus tachycardia Possible Left atrial enlargement Nonspecific ST and T wave abnormality Abnormal ECG Confirmed by LIANA ACE DO ([id number]), communications editor [employer] ([id number]) on 03/14/2018 9:58:39 PM Referred By: Confirmed By:LIANA ACE DO
[2018-03-15] MEDS: Mometasone/Formoterol 120 PUFF INHALER INH SCH ×2 (06:29→18:23)
[2018-03-15] MEDS: Enoxaparin Sodium 40 MG/0.4 ML SYRINGE SC SCH (08:04)
[2018-03-15] MEDS: predniSONE 20 MG TAB PO SCH (08:05)
[2018-03-15] MEDS: Saccharomyces boulardii 250 MG CAP PO SCH (08:05)
[2018-03-15] MEDS: Fluconazole 100 MG TAB PO SCH (08:05)
[2018-03-15] MEDS: guaiFENesin ER 600 MG TAB PO SCH ×2 (08:05→20:56)
[2018-03-15] MEDS: Doxycycline 100 MG CAP PO SCH ×2 (10:42→21:01)
--- NOTE | 2018-03-15 11:11 | PDOC.PN ---
- Subjective Encounter Start Date: 03/15/18 Encounter Start Time: 07:40 Subjective: breathing better, is on nasal canula -: slept well last night - Objective Resuscitation Status - Order Detail: 03/08/18 09:35 Resuscitation Status Routine Resuscitation Status: FULL: Full Resuscitation MAR Reviewed: Yes Vital Signs & Weight: Vital Signs (12 hours) Temp Pulse Resp BP Pulse Ox 03/15/18 09:40 85 18 96 03/15/18 08:00 95 03/15/18 07:32 98.3 F 91 20 123/61 92 L 03/15/18 06:29 82 16 97 03/15/18 06:25 82 16 97 03/15/18 05:00 98.3 F 78 21 H 125/57 L 92 L 03/15/18 02:22 12 03/15/18 00:00 85 20 131/67 91 L Weight Weight 123 lb 11.2 oz I&O: 03/14/18 03/15/18 03/16/18 06:59 06:59 06:59 Intake Total 2664 830 240 Balance 2664 830 240 Result Diagrams: 03/13/18 07:49 03/13/18 07:49 Phys Exam - Physical Examination HEENT: PERRLA, moist MMs Neck: no JVD, supple Respiratory: no wheezing rhonchi+ Cardiovascular: RRR, no significant murmur Gastrointestinal: soft, non-tender, positive bowel sounds Musculoskeletal: no edema, pulses present Neurological: non-focal, moves all 4 limbs Psychiatric: A&O x 3 Dx/Plan (1) PNA (pneumonia) Code(s): J18.9 - PNEUMONIA, UNSPECIFIED ORGANISM Status: Acute Qualifiers: Pneumonia type: due to unspecified organism Laterality: left Lung location: lower lobe of lung Qualified Code(s): J18.1 - Lobar pneumonia, unspecified organism (2) COPD (chronic obstructive pulmonary disease) Status: Chronic Qualifiers: COPD type: chronic bronchitis Chronic bronchitis type: unspecified Qualified Code(s): J42 - Unspecified chronic bronchitis (3) Demand ischemia of myocardium Code(s): I24.8 - OTHER FORMS OF ACUTE ISCHEMIC HEART DISEASE Status: Acute (4) Chronic diastolic heart failure Code(s): I50.32 - CHRONIC DIASTOLIC (CONGESTIVE) HEART FAILURE Status: Chronic (5) Acute respiratory failure with hypoxia Code(s): J96.01 - ACUTE RESPIRATORY FAILURE WITH HYPOXIA Status: Resolved Comment: on home dose of 2 lts by [place] now - Plan is on doxy, levaquin, fluconazole, nebs and prednisone -: to amb as tolerated -: dc plan per pulm adv * . Review of Systems - Medications/Allergies Allergies/Adverse Reactions: Allergies Allergy/AdvReac Type Severity Reaction Status Date / Time Penicillins Allergy Verified 02/25/18 15:49 Medications: Current Medications Acetaminophen (Tylenol) 650 mg PO Q4H PRN PRN Reason: Headache/Fever/Mild Pain (1-3) Albuterol/Ipratropium (Duoneb) 3 ml NEB [id number] Last Admin: 03/15/18 09:40 Dose: 3 ml Alprazolam (Xanax) 0.25 mg PO BIDPRN PRN PRN Reason: Anxiety Last Admin: 03/14/18 21:11 Dose: 0.25 mg Amitriptyline HCl (Elavil) 50 mg PO HS [facility] Last Admin: 03/14/18 20:55 Dose: 50 mg Doxycycline Hyclate (Vibramycin) 100 mg PO BID [facility] Last Admin: 03/15/18 10:42 Dose: 100 mg Enoxaparin Sodium (Lovenox) 40 mg SC 0900 [facility] Last Admin: 03/15/18 08:04 Dose: 40 mg Fluconazole (Diflucan) 100 mg PO DAILY [facility] Last Admin: 03/15/18 08:05 Dose: 100 mg Guaifenesin (Mucinex) 600 mg PO Q12HR [facility] Last Admin: 03/15/18 08:05 Dose: 600 mg Hydralazine HCl (Apresoline) 10 mg SLOW IVP Q4H PRN PRN Reason: SBP > 180 and HR < 70 Levofloxacin (Levaquin) 500 mg PO 0600 [facility] Last Admin: 03/15/18 05:29 Dose: 500 mg Mometasone Furoate/Formoterol Fumar (Dulera 200 Mcg/5 Mcg Inhaler) 2 puff INH BID-RT [facility] Last Admin: 03/15/18 06:29 Dose: 2 puff Pantoprazole Sodium (Protonix) 40 mg PO DAILY [facility] Last Admin: 03/15/18 08:05 Dose: 40 mg Prednisone (Prednisone) 20 mg PO QAM-WM [facility] Last Admin: 03/15/18 08:05 Dose: 20 mg Saccharomyces Boulardii (Florastor) 250 mg PO DAILY [facility] Last Admin: 03/15/18 08:05 Dose: 250 mg Sertraline HCl (Zoloft) 50 mg PO HS [facility] Last Admin: 03/14/18 20:55 Dose: 50 mg Sodium Chloride (Flush - Normal Saline) 10 ml IVF Q12HR [facility] Last Admin: 03/15/18 08:05 Dose: 10 ml Sodium Chloride (Flush - Normal Saline) 10 ml IVF PRN PRN PRN Reason: Saline Flush Last Admin: 03/12/18 02:39 Dose: 10 ml Spironolactone (Aldactone) 25 mg PO HS [facility] Last Admin: 03/14/18 20:56 Dose: 25 mg
--- NOTE | 2018-03-15 11:34 | PRG ---
DATE OF SERVICE: SUBJECTIVE: This morning, she is better. She is less short of breath with less cough. OBJECTIVE: VITAL SIGNS: Saturations are 96%, respiratory rate 18, temperature 98.3, blood pressure 123/61. CHEST: Bilateral crackles, left greater than right. CARDIAC: Normal S1 and S2. No gallops. ABDOMEN: No masses. IMPRESSION: Left pneumonia, bronch negative, bronchiectasis. PLAN: She can be discharged home tomorrow on appropriate medication. Follow up in the office in several weeks. Job ID: [id number]
[2018-03-15] MEDS: Amitriptyline HCl 25 MG TAB PO SCH (20:56)
[2018-03-15] MEDS: Spironolactone 25 MG TAB PO SCH (20:56)
[2018-03-15] MEDS: ALPRAZolam 0.25 MG TAB PO PRN (21:01)
[2018-03-16] MEDS: Mometasone/Formoterol 120 PUFF INHALER INH SCH (07:02)
[2018-03-16] MEDS: Enoxaparin Sodium 40 MG/0.4 ML SYRINGE SC SCH (07:41)
[2018-03-16] MEDS: Saccharomyces boulardii 250 MG CAP PO SCH (07:41)
[2018-03-16] MEDS: guaiFENesin ER 600 MG TAB PO SCH (07:41)
[2018-03-16] MEDS: predniSONE 20 MG TAB PO SCH (07:41)
[2018-03-16] MEDS: Fluconazole 100 MG TAB PO SCH (07:41)
[2018-03-16 08:14] VITALS: BP 117/59; TEMP 98.3
[2018-03-16] MEDS: Doxycycline 100 MG CAP PO SCH (08:51)
--- NOTE | 2018-03-16 11:11 | PRG ---
DATE OF SERVICE: 03/16/2018 SUBJECTIVE: She is doing better, less cough, less shortness of breath. OBJECTIVE: VITAL SIGNS: This morning, her saturations are 98% on 2 L, respiratory rate 18, temperature 98, pulse 72, blood pressure 170/59. CHEST: She has decreased breath sounds. . CARDIAC: Normal S1 and S2. No gallops. ABDOMEN: No masses. ASSESSMENT: 1. Left lung slowly resolving pneumonia. 2. Severe deconditioning. 3. Chronic obstructive pulmonary disease. PLAN: She is pretty much ready to be discharged home. Follow up in the office in about 3 weeks. Job ID: [id number]
--- NOTE | 2018-03-16 15:03 | PDOC.PN ---
- Subjective Encounter Start Date: 03/16/18 Encounter Start Time: 07:00 Subjective: sob and cough is better -: slept well last night, is amb in hallway -: daughter at bedside - Objective Resuscitation Status - Order Detail: 03/08/18 09:35 Resuscitation Status Routine Resuscitation Status: FULL: Full Resuscitation MAR Reviewed: Yes Vital Signs & Weight: Vital Signs (12 hours) Temp Pulse Resp BP BP Pulse Ox 03/16/18 11:05 88 16 94 L 03/16/18 08:02 98.3 F 82 20 117/59 L 98 03/16/18 08:00 98 03/16/18 06:41 95 03/16/18 06:40 73 16 95 03/16/18 05:00 98.2 F 76 18 120/62 92 L Weight Weight 123 lb 11.2 oz I&O: 03/15/18 03/16/18 03/17/18 06:59 06:59 06:59 Intake Total 830 1170 240 Balance 830 1170 240 Result Diagrams: 03/13/18 07:49 03/13/18 07:49 Phys Exam - Physical Examination HEENT: PERRLA, moist MMs Neck: no JVD, supple Respiratory: no wheezing, no rales rhonchi+ Cardiovascular: RRR, no significant murmur Gastrointestinal: soft, non-tender, positive bowel sounds Musculoskeletal: no edema, pulses present Neurological: non-focal, moves all 4 limbs Psychiatric: normal affect, A&O x 3 Dx/Plan (1) PNA (pneumonia) Code(s): J18.9 - PNEUMONIA, UNSPECIFIED ORGANISM Status: Acute Qualifiers: Pneumonia type: due to unspecified organism Laterality: left Lung location: lower lobe of lung Qualified Code(s): J18.1 - Lobar pneumonia, unspecified organism (2) COPD (chronic obstructive pulmonary disease) Status: Chronic Qualifiers: COPD type: chronic bronchitis Chronic bronchitis type: unspecified Qualified Code(s): J42 - Unspecified chronic bronchitis (3) Demand ischemia of myocardium Code(s): I24.8 - OTHER FORMS OF ACUTE ISCHEMIC HEART DISEASE Status: Acute (4) Chronic diastolic heart failure Code(s): I50.32 - CHRONIC DIASTOLIC (CONGESTIVE) HEART FAILURE Status: Chronic (5) Acute respiratory failure with hypoxia Code(s): J96.01 - ACUTE RESPIRATORY FAILURE WITH HYPOXIA Status: Resolved Comment: on home dose of 2 lts by [place] now - Plan hemostable -: to continue doxy and prednisone taper -: has been cleared for dc by -: [facility] with [facility] and PT * .
--- NOTE | 2018-03-17 13:01 | DIS ---
DATE OF ADMISSION: 03/08/2018 DATE OF DISCHARGE: 03/16/2018 DISCHARGE DISPOSITION: Home. PRIMARY DISCHARGE DIAGNOSES: 1. Pneumonia, left lung. 2. Chronic obstructive pulmonary disease exacerbation. 3. Demand ischemia. 4. Acute respiratory failure with hypoxia, resolved. SECONDARY DISCHARGE DIAGNOSIS: History of congestive heart failure with diastolic dysfunction stage C. PROCEDURES DONE DURING HOSPITALIZATION: The patient had CT angio chest done on the day of admission, which showed progressive worsening of left lower lobe pneumonia. The patient had bronchoscopy done on 03/11/[address] Cook, which showed a slowly resolving left chest pneumonia. There is no obvious mass or growth seen on bronchoscopy. Bronchial washings showed no malignant cells. Blood cultures x2 , no growth. Bronchial washing showed no acid-fast bacilli. Bronchial culture grew Karolina albicans. She had a white count of 19 on the day of admission with 83% neutrophils. DISCHARGE MEDICATIONS: 1. Prednisone tapering dose starting at 10 mg daily. 2. Doxycycline 100 mg p.o. twice daily for 5 days. 3. Spironolactone 25 mg p.o. at bedtime. 4. Sertraline 50 mg p.o. at bedtime. 5. Magnesium 200 mg p.o. daily. 6. Advair Diskus inhaler twice daily. 7. Amitriptyline 50 mg p.o. at bedtime. 8. DuoNeb q.6 hourly. 9. Florastor 250 mg p.o. daily. ALLERGIES: ALLERGIC TO PENICILLIN. INPATIENT CONSULT: Dr. Cook/Dr. Gonzales for Pulmonology. DISCHARGE PLAN: The patient to follow up with Dr. Cook in 3 weeks and primary care physician in 1 week. BRIEF COURSE DURING HOSPITALIZATION: The patient initially got admitted on the for complaints of shortness of breath. She was recently discharged to home. The patient was discharged on the of this month on Levaquin and prednisone taper. Despite this, the patient had increasing shortness of breath and had to be placed on BiPAP on arrival. She was admitted to [facility]. She has had consultation with Dr. Gonzales/Dr. Cook for Pulmonology. Subsequent CAT scan done showed worsening left lung pneumonia. She has had bronchoscopy done, which did not reveal any mass or growth. She was on broad-spectrum IV antibiotics along with fluconazole. The patient has had slow gentle recovery. Prior to discharge, she is at her baseline 2 L of nasal cannula oxygen with history of chronic respiratory failure and baseline oxygen dependent COPD. She is ambulating and eating well prior to discharge. All through her stay, her daughter was given updates. She has been cleared by Dr. Cook for discharge today. Please see a [id number] documentation for the day of discharge on [employer]. Job ID: [id number] MTDD
== END 2018-03-16 14:02 | disposition home or self-care (01) | DRG 871 ==
LOC: ERS 07:45 → ERHOLD 09:07 → IMCU/EMU 14:04 → T4-A 03-14 15:28
PROVIDERS: ADMIT Internal Medicine; ATTEND Internal Medicine
PROC: 0B9B8ZX Drainage of Left Lower Lobe Bronchus, Via Natural or Artificial Opening Endoscopic, Diagnostic (ICD-10-PCS; principal; 2018-03-11)
DX: A41.9 Sepsis, unspecified organism (principal); J18.9 Pneumonia, unspecified organism; J96.21 Acute and chronic respiratory failure with hypoxia; I50.32 Chronic diastolic (congestive) heart failure; R04.2 Hemoptysis; I24.8 Other forms of acute ischemic heart disease; J44.9 Chronic obstructive pulmonary disease, unspecified; F32.9 Major depressive disorder, single episode, unspecified; Z87.891 Personal history of nicotine dependence; Z88.0 Allergy status to penicillin; Z79.899 Other long term (current) drug therapy; Y95 Nosocomial condition
CPT/HCPCS: 36415; 51701; 71045; 71275; 80048; 80053; 80202; 81003; 82805; 83605; 83880; 84484; 85025; 85610; 87040; 87070; 87102; 87116; 87205; 87206; 88112; 88305; 93005; 94640; 94660; 96365; 96366; 96367; 96375; 99152; A4353; J0692; J1650; J1956; J2001; J2020; J2060; J2270; J2405; J2920; J2930; J3370; J7050; J7506; J7620

== ENCOUNTER 2018-05-06 12:51 | Outpatient (CLI) | payer MEDICARE, BC ==
--- NOTE | 2018-05-06 14:13 | RAD ---
2 VIEWS CHEST: Date: 05/06/18 COMPARISON: 07/14/08. HISTORY: Dyspnea. FINDINGS: Two views of the chest show a normal sized cardiomediastinal silhouette with atherosclerotic calcific ations in the aorta. Increased interstitial lung markings are present. There is no evidence of consol idation, mass, or pleural effusion. IMPRESSION: No evidence of acute cardiopulmonary disease. POS: [facility]
== END 2018-05-06 12:52 | disposition home or self-care (01) ==
LOC: RAD 12:51
PROVIDERS: ATTEND Internal Medicine Pulmonary Disease
DX: R06.00 Dyspnea, unspecified (principal)
CPT/HCPCS: 71046

== ENCOUNTER 2020-02-28 13:07 | Outpatient (CLI) | payer MEDICARE, BC ==
--- NOTE | 2020-02-28 13:32 | RAD ---
Chest 2 views HISTORY: Dyspnea. COMPARISON: 05/06/2018. FINDINGS: Cardiac silhouette and pulmonary vasculature are unremarkable. Mediastinum is midline with aortic calcification. Lungs remain hyperinflated with slight flattening of the hemidiaphragms. Scattered areas of parenchym al scarring are similar in appearance to the prior study. No confluent airspace consolidation, pneumothorax, or pleural fluid. IMPRESSION : Atherosclerosis. Chronic-type findings are stable. No acute abnormalities are demonstrated
== END 2020-02-28 13:08 | disposition home or self-care (01) ==
LOC: BICRAD 13:07
PROVIDERS: ATTEND Internal Medicine Pulmonary Disease
DX: R06.00 Dyspnea, unspecified (principal); I70.0 Atherosclerosis of aorta
CPT/HCPCS: 71046

== ENCOUNTER 2020-09-05 13:39 | Outpatient (CLI) | payer MEDICARE, BC | END 2020-09-05 13:40 | disposition home or self-care (01) | LOC: BICRAD 13:39 | PROVIDERS: ATTEND Internal Medicine Pulmonary Disease | DX: R06.00 Dyspnea, unspecified (principal) | CPT/HCPCS: 71046 ==

== ENCOUNTER 2022-03-05 15:06 | Outpatient (CLI) | payer MEDICARE, BC | END 2022-03-05 15:07 | disposition home or self-care (01) | LOC: RAD 15:06 | PROVIDERS: ATTEND Family Medicine | DX: R06.00 Dyspnea, unspecified (principal) | CPT/HCPCS: 71046 ==